=== PATIENT | female | born 1930 | race Caucasian/White ===

== ENCOUNTER → 2016-12-16 | Outpatient (CLI) | payer MEDICARE, BC ==
[~2016-12-16] MED LIST: ASCO500C PO; CALC500C16 CHEW; CALC600T12 PO; CLOP75 PO; ENAL20TA81 PO; ENAL5TAB98 PO; FISH1000 PO; FISH120014 PO; HYDR200T3 PO; MULT1TAB84 PO; PLAV75TA29 PO; RANI150T PO; SULF500T3 PO; SULF500T35 PO; TAB-TAB PO; TOPR25TA2 PO; TOPR50TA PO; VITA400C28 PO; VITA500C PO; ZOCO40TA PO
[2016-12-16 09:21] LABS: AUTOMATED NEUTROPHIL # 4.3 TH/MM3 (1.8-7.7); BASOPHIL % 0.6 % (0.0-2.0); EOSINOPHIL # 0.1 TH/MM3 (0-0.4); HEMATOCRIT 31.9 % (35.0-46.0); HEMO FLAGS DIFF FINAL; LYMPH % 17.9 % (9.0-44.0); LYMPHOCYTE # 1.1 TH/MM3 (1.0-4.8); MEAN CELL VOLUME 93.1 FL (80.0-100.0); MEAN CORPUSCULAR HEMOGLOBIN 30.4 PG (27.0-34.0); MEAN CORPUSCULAR HGB CONC 32.7 % (32.0-36.0); MONO % 7.4 % (0.0-8.0); NEUT % 72.1 % (16.0-70.0); PLATELET COUNT 240 TH/MM3 (150-450); RED BLOOD COUNT 3.42 MIL/MM3 (4.00-5.30); RED CELL DISTRIBUTION WIDTH 15.1 % (11.6-17.2)
[2016-12-16 09:46] LABS: ALKALINE PHOSPHATASE 73 U/L (45-117); ALT (GPT) 23 U/L (10-53); ANION GAP 8 MEQ/L (5-15); AST (GOT) 25 U/L (15-37); BICARBONATE 29.5 MEQ/L (21.0-32.0); BLOOD UREA NITROGEN 34 MG/DL (7-18); CHLORIDE 104 MEQ/L (98-107); GLOMERULAR FILTRATION RATE 71 ML/MIN (>89); GLUCOSE,FASTING 108 MG/DL (74-99); POTASSIUM 3.6 MEQ/L (3.5-5.1); SODIUM (NA) 141 MEQ/L (136-145); TOTAL BILIRUBIN ADULT 0.3 MG/DL (0.2-1.0)
[2016-12-16 09:48] LABS: WESTERGREN SEDIMENTATION RATE 56 mm/hr (0-30)
== END ==
LOC: PLAB 07:38
PROVIDERS: ATTEND Allergy & Immunology
DX: M05.79 Rheumatoid arthritis with rheumatoid factor of multiple sites without organ or systems involvement (principal); Z79.899 Other long term (current) drug therapy
CPT/HCPCS: 36415; 80053; 85025; 85652; 86140

== ENCOUNTER → 2017-02-04 | Outpatient (CLI) | payer MEDICARE, BC ==
[~2017-02-04] MED LIST changes: -CALC600T12 PO; -CLOP75 PO; -ENAL5TAB98 PO; -FISH1000 PO; -SULF500T35 PO; -TAB-TAB PO; -TOPR25TA2 PO; -VITA500C PO
[2017-02-04 09:22] LABS: BASOPHIL # 0.1 TH/MM3 (0-0.2); BASOPHIL % 1.1 % (0.0-2.0); EOSINOPHIL # 0.2 TH/MM3 (0-0.4); EOSINOPHIL % 2.7 % (0.0-4.0); HEMATOCRIT 31.9 % (35.0-46.0); HEMO FLAGS DIFF FINAL; LYMPH % 15.8 % (9.0-44.0); LYMPHOCYTE # 1.1 TH/MM3 (1.0-4.8); MEAN CELL VOLUME 91.1 FL (80.0-100.0); MEAN CORPUSCULAR HEMOGLOBIN 30.2 PG (27.0-34.0); MEAN CORPUSCULAR HGB CONC 33.1 % (32.0-36.0); MONO % 9.1 % (0.0-8.0); NEUT % 71.3 % (16.0-70.0); PLATELET COUNT 265 TH/MM3 (150-450); RED BLOOD COUNT 3.51 MIL/MM3 (4.00-5.30); RED CELL DISTRIBUTION WIDTH 16.4 % (11.6-17.2); WHITE BLOOD COUNT 7.1 TH/MM3 (4.0-11.0)
[2017-02-04 09:46] LABS: ALKALINE PHOSPHATASE 87 U/L (45-117); ALT (GPT) 22 U/L (10-53); ANION GAP 7 MEQ/L (5-15); AST (GOT) 27 U/L (15-37); BICARBONATE 28.6 MEQ/L (21.0-32.0); BLOOD UREA NITROGEN 24 MG/DL (7-18); CHLORIDE 104 MEQ/L (98-107); GLOMERULAR FILTRATION RATE 74 ML/MIN (>89); GLUCOSE,FASTING 110 MG/DL (74-99); SODIUM (NA) 140 MEQ/L (136-145); TOTAL BILIRUBIN ADULT 0.4 MG/DL (0.2-1.0)
[2017-02-04 09:50] LABS: WESTERGREN SEDIMENTATION RATE 37 mm/hr (0-30)
== END ==
LOC: PLAB 07:26
PROVIDERS: ATTEND Family Medicine
DX: E03.9 Hypothyroidism, unspecified (principal); M05.79 Rheumatoid arthritis with rheumatoid factor of multiple sites without organ or systems involvement; Z79.899 Other long term (current) drug therapy
CPT/HCPCS: 36415; 80053; 84443; 85025; 85652; 86140

== ENCOUNTER → 2017-02-09 | Outpatient (CLI) | payer MEDICARE, BC ==
--- NOTE | 2017-02-03 10:22 | MH ---
cc: LUCY REED DATE OF ADMISSION: 02/09/2017 ADMISSION DIAGNOSIS Cloudy posterior capsule left eye. HISTORY OF PRESENT ILLNESS This 86-year-old white female is coming through [facility] for the purpose of a YAG laser posterior capsulotomy of the left eye. She is status post cataract surgery with intraocular lens implants in the past and was found to have a cloudy posterior capsule in the left eye, has elected to have a YAG laser posterior capsulotomy at this time to try and increase the acuity. She also has corneal problems in her right eye and is being referred for a corneal evaluation. PAST MEDICAL HISTORY 1. History of hypertension. 2. Rheumatoid arthritis. 3. Anemia. 4. Heart blockages. 5. Stroke in 2004. PAST SURGICAL HISTORY Bilateral cataract surgery. YAG laser posterior capsulotomy on the right eye. Hernia surgery twice. Appendectomy. Bilateral total knee replacements. Foot surgery. Some stents in her heart. DAILY MEDICATIONS 1. Sulfasalazine. 2. Ranitidine. 3. Metoprolol. 4. Hydroxychloroquine. 5. Enalapril. 6. Simvastatin. 7. Centrum vitamins. 8. Fish oil. 9. Iron. 10. Baby aspirin. 11. Calcium. 12. Vitamin D. ALLERGIES SHE IS ALLERGIC TO PENICILLIN COUMADIN. FAMILY HISTORY, REVIEW OF SYSTEMS, SOCIAL HISTORY Noncontributory. PHYSICAL EXAMINATION On ocular exam the patient's best corrected visual acuity is 20/400 in the right eye and 20/40 -2 in the left. Visual johnson are full to confrontation testing. Extraocular muscle exam reveals full versions with orthophoria at distance and near. Pupils are 2.5 mm, equal, round, reactive to light without afferent defect. Anterior segment examination reveals some hazy corneal opacities in the right eye and a cloudy posterior capsule in the left. Intraocular pressure is 12 in the right eye and 15 in the left by applanation tonometry. Dilated fundus exam revealed sharp disk with cup-to-disk ratio of 0.3 bilaterally. The macula is clear and a posterior vitreous detachment is present bilaterally. IMPRESSION 1. Cloudy posterior capsule left eye. 2. Corneal opacities right eye. 3. Pseudophakia both eyes, status post YAG laser posterior capsulotomy, right eye. 4. High-risk medication use - Plaquenil. PLAN YAG laser posterior capsulotomy of the left eye. The patient will is being referred to a corneal specialist for evaluation of the right eye. MD JACLYN Bartlett/JLAEN /8:16 AM /9:13 AM
[~2017-02-09] MED LIST changes: +BALANCED SALT SOLN OPHT IRRIG 15 ML BTL ONE; +FLUOROMETHOLONE 0.25% OPHT SUSP 5 ML BTL ONE; +HYPROMELLOSE 0.3 % OPTH GEL 10 GM (0.34 FL OZ) TUBE ONE; +PHENYLEPHRINE HCL 2.5% OPTH SOLN 2 ML BTL ONE; +PROPARACAINE HCL 0.5% OPHT SOLN 15 ML BTL ONE; +TROPICAMIDE 1% OPHT SOLN 15 ML BTL ONE
--- NOTE | 2017-02-10 10:52 | MP ---
cc: LUCY HIGGINS M.D. DATE OF SURGERY 02/09/2017 PREOPERATIVE DIAGNOSIS Cloudy posterior capsule left eye. POSTOPERATIVE DIAGNOSIS Cloudy posterior capsule left eye. OPERATION YAG laser posterior capsulotomy, left eye. SURGEON Lucy Higgins MD ANESTHESIA Topical COMPLICATIONS None INDICATIONS See history and physical previously dictated. PROCEDURE The patient arrived at [facility]. Blood pressure was 136/62, pulse 60, respirations 16. A drop of Alphagan P and Mydriacyl were instilled in the left eye. The patient was seated at the YAG laser. A drop of Alcaine was instilled in the left eye and a YAG laser posterior capsulotomy lens was placed on the anterior surface of the left cornea. YAG laser posterior capsulotomy was carried out utilizing 30 exposures of 1.5. millijoules. An adequate opening was seen following the procedure. A drop of Alphagan P was instilled topically. The patient was given a prescription for a topical steroid to be used four times per day and has an appointment for follow up on the first postoperative day in my office. The patient left the [facility] in satisfactory condition. MD JACLYN Bartlett/ANGELICA /12:37 PM /10:48 AM
--- NOTE | 2017-02-10 10:53 | MP ---
cc: LUCY HIGGINS DATE OF SURGERY: 02/09/2017 PREOPERATIVE DIAGNOSIS: Cloudy posterior capsule left eye. POSTOPERATIVE DIAGNOSIS: Cloudy posterior capsule left eye. OPERATION: YAG laser posterior capsulotomy, left eye. SURGEON: Lucy Higgins MD ANESTHESIA: Topical. COMPLICATIONS: None. INDICATIONS: See history and physical previously dictated. PROCEDURE: The patient arrived at [facility]. Blood pressure was 136/62, pulse 60, respirations 16. The patient was seated at the YAG laser. A drop of Alcaine was instilled in the left eye and a YAG laser posterior capsulotomy lens was placed on the anterior surface of the left cornea. YAG laser posterior capsulotomy was carried out utilizing 30 exposures of 1.5 millijoules. An adequate opening was seen following the procedure. The patient was given a prescription for a topical steroid to be used four times per day and has an appointment for follow up on the first postoperative day in my office. The patient left the [facility] in satisfactory condition. MD JACLYN Bartlett/ni /12:34 PM /10:48 AM MTDShannan
== END ==
LOC: PHSDC 10:36
PROVIDERS: ATTEND Ophthalmology
DX: H26.492 Other secondary cataract, left eye (principal)

== ENCOUNTER 2017-07-22 11:15 | Emergency (ER) | payer MEDICARE, BC ==
[~2017-07-22 11:15] MED LIST changes: -BALANCED SALT SOLN OPHT IRRIG 15 ML BTL ONE; -FLUOROMETHOLONE 0.25% OPHT SUSP 5 ML BTL ONE; -HYPROMELLOSE 0.3 % OPTH GEL 10 GM (0.34 FL OZ) TUBE ONE; -PHENYLEPHRINE HCL 2.5% OPTH SOLN 2 ML BTL ONE; -PROPARACAINE HCL 0.5% OPHT SOLN 15 ML BTL ONE; -TROPICAMIDE 1% OPHT SOLN 15 ML BTL ONE
[2017-07-22] MEDS ORDERED: SODIUM CHLOR 0.9% 1000 ML INJ 1,000 ML IV ONE (11:28)
[2017-07-22] MEDS ORDERED: SODIUM CHLORIDE 0.9% FLUSH 10 ML FLUSH IVF PRN (11:30)
[2017-07-22 11:31] VITALS: BP 143/66; PULSE 102; RESP 16; TEMP 98.2; O2SAT 94
[2017-07-22] MEDS ORDERED: HYDR12.57 PO (11:38)
[2017-07-22] MEDS ORDERED: ASPI81CH CHEW (11:38)
[2017-07-22] MEDS ORDERED: FERR140T PO (11:38)
[2017-07-22 11:44] VITALS: O2SAT 94; O2SAT 99
--- NOTE | 2017-07-22 11:45 | PD ---
HPI . Scalp injury Chief Complaint: Syncope/Near-Syncope Time Seen by Provider: 11:28 Travel History International Travel<30 days: No Contact w/Intl Traveler<30days: No Traveled to known affect area: No History of Present Illness HPI This patient presents to us by EVAC after falling and striking her head. The patient was reportedly walking a great distance in the heat. She denies feeling weak and dizzy but EMS reports that she probably did have a syncopal episode and then struck her head. They report hypotension on their initial evaluation. They treated her with a fluid bolus. The patient has no complaints on arrival to the emergency department. Specifically, she denies feeling weak and dizzy. She denies headache or blurred vision. She denies chest pain or shortness of breath. She denies nausea or vomiting. She does not believe that she has been running a fever. PFSH Past Medical History Arthritis: Yes Autoimmune Disease: No Blood Disorders: No Heart Rhythm Problems: No Cancer: Yes (hx of skin cancer) Cardiac Catheterization: Yes (? STENT PLACEMENT - PT UNSURE) High Cholesterol: Yes Congestive Heart Failure: No Cerebrovascular Accident: Yes (TIA) Diabetes: No Endocrine: No Genitourinary: No Hepatitis: No Hiatal Hernia: No Hypertension: Yes Immune Disorder: Yes Musculoskeletal: No Neurologic: Yes Psychiatric: No Reproductive: No Respiratory: No Myocardial Infarction: No Sickle Cell Disease: No Thyroid Disease: No PNEUMOCCOCAL Vaccine (Year): 2 Past Surgical History Abdominal Surgery: Yes (appendectomy hernia repair) Appendectomy: Yes Eye Surgery: Yes (RIGHT CAT. SX) Joint Replacement: Yes (BILATERAL KNEE REPLACEMENTS) Pacemaker: No Tonsillectomy: Yes Other Surgery: Yes Social History Alcohol Use: No Tobacco Use: No Substance Use: No Allergies-Medications (Allergen,Severity, Reaction): Coded Allergies: penicillin G (Unverified Allergy, Severe, RASH, 07/22/17) warfarin (Unverified Allergy, Severe, Rash, 07/22/17) Reported Meds & Prescriptions Reported Meds & Active Scripts Active Macrobid (Nitrofurantoin Monoh/Nitrofur Macro) 100 Mg Cap 100 Mg PO BID 7 Days Reported Aspirin 81 Mg Chew 81 Mg CHEW DAILY Ferrous Sulfate ER (Ferrous Sulfate) 140 Mg (45 Mg Iron) Tab 140 Mg PO DAILY Hydrochlorothiazide 12.5 Mg Cap 12.5 Mg PO DAILY Sulfasalazine 500 Mg Tab 1,000 Mg PO BID Zocor (Simvastatin) 40 Mg Tab 40 Mg PO HS Ranitidine (Ranitidine HCl) 150 Mg Tab 150 Mg PO BID Toprol XL (Metoprolol Succinate) 50 Mg Tab 50 Mg PO BID Hydroxychloroquine (Hydroxychloroquine Sulfate) 200 Mg Tab 200 Mg PO BID Takw with food Vasotec (Enalapril Maleate) 20 Mg Tab 20 Mg PO BID Review of Systems Except as stated in HPI: all other systems reviewed are Neg General / Constitutional: No: Fever, Chills Eyes: No: Diploplia, Blurred Vision HENT: No: Headaches, Lightheadedness Cardiovascular: No: Chest Pain or Discomfort Respiratory: No: Shortness of Breath Gastrointestinal: No: Nausea, Vomiting, Diarrhea Neurologic: No: Weakness, Dizziness, Syncope Physical Exam Narrative GENERAL: This is a thin, frail, elderly woman who does not appear to be in any acute distress. SKIN: Warm and dry. HEAD: Left posterior scalp contusion. EYES: Pupils equal and round. Extraocular movements intact. ENT: No nasal bleeding or discharge. Mucous membranes pink and moist. NECK: Trachea midline. Nontender. Full range of motion. CARDIOVASCULAR: Regular rate and rhythm. Heart sounds normal. RESPIRATORY: No accessory muscle use. Lungs clear with full air movement throughout. GASTROINTESTINAL: Abdomen soft, non-tender, nondistended. MUSCULOSKELETAL: She has deformities consistent with rheumatoid arthritis. NEUROLOGICAL: Awake and alert. No obvious cranial nerve deficits. Motor grossly within normal limits. Normal speech. PSYCHIATRIC: Appropriate mood and affect; insight and judgment normal. Data Data Last Documented VS Vital Signs Date Time Temp Pulse Resp B/P (MAP) Pulse Ox O2 Delivery O2 Flow Rate FiO2 07/22/17 11:44 94 Room Air 07/22/17 11:31 98.2 102 16 143/66 (91) Orders Orders Electrocardiogram (07/22/17 11:28) Basic Metabolic Panel (Bmp) (07/22/17 11:28) Complete Blood Count With Diff (07/22/17 11:28) Urinalysis - C+S If Indicated (07/22/17 11:28) Ct Brain W/O Iv Contrast(Rout) (07/22/17 11:28) Ct Cerv Spine W/O Contrast (07/22/17 11:28) Ecg Monitoring (07/22/17 11:28) Iv Access Insert/Monitor (07/22/17 11:28) Oximetry (07/22/17 11:28) Sodium Chloride 0.9% Flush (Ns Flush) (07/22/17 11:30) Sodium Chlor 0.9% 1000 Ml Inj (Ns 1000 M (07/22/17 11:28) Sodium Chlor 0.9% 1000 Ml Inj (Ns 1000 M (07/22/17 13:15) Sodium Chlor 0.9% 1000 Ml Inj (Ns 1000 M (07/22/17 13:15) Urine Culture (07/22/17 13:23) Ceftriaxone Inj (Rocephin Inj) (07/22/17 14:00) Labs Laboratory Tests Test 07/22/17 12:15 07/22/17 13:23 White Blood Count 5.9 TH/MM3 Red Blood Count 3.25 MIL/MM3 Hemoglobin 9.6 GM/DL Hematocrit 30.4 % Mean Corpuscular Volume 93.6 FL Mean Corpuscular Hemoglobin 29.7 PG Mean Corpuscular Hemoglobin Concent 31.7 % Red Cell Distribution Width 14.4 % Platelet Count 227 TH/MM3 Mean Platelet Volume 6.9 FL Neutrophils (%) (Auto) 81.2 % Lymphocytes (%) (Auto) 10.0 % Monocytes (%) (Auto) 7.1 % Eosinophils (%) (Auto) 0.9 % Basophils (%) (Auto) 0.8 % Neutrophils # (Auto) 4.8 TH/MM3 Lymphocytes # (Auto) 0.6 TH/MM3 Monocytes # (Auto) 0.4 TH/MM3 Eosinophils # (Auto) 0.1 TH/MM3 Basophils # (Auto) 0.0 TH/MM3 CBC Comment DIFF FINAL Differential Comment Blood Urea Nitrogen 30 MG/DL Creatinine 0.68 MG/DL Random Glucose 98 MG/DL Calcium Level 9.3 MG/DL Sodium Level 143 MEQ/L Potassium Level 3.5 MEQ/L Chloride Level 109 MEQ/L Carbon Dioxide Level 27.7 MEQ/L Anion Gap 6 MEQ/L Estimat Glomerular Filtration Rate 82 ML/MIN Urine Color YELLOW Urine Turbidity SLIGHT Urine pH 6.5 Urine Specific [place] 1.016 Urine Protein TRACE mg/dL Urine Glucose (UA) NEG mg/dL Urine Ketones NEG mg/dL Urine Occult Blood NEG Urine Nitrite POS Urine Bilirubin NEG Urine Leukocyte Esterase NEG Urine RBC 0-3 /hpf Urine WBC 0-2 /hpf Urine Squamous Epithelial Cells 0-5 /hpf Urine Bacteria MANY /hpf Microscopic Urinalysis Comment CULTURE INDICATED MDM Medical Decision Making Medical Screen Exam Complete: Yes Emergency Medical Condition: Yes Medical Record Reviewed: Yes (medical history is significant for rheumatoid arthritis, coronary artery disease, hypertension, hyperlipidemia and previous syncope.) Interpretation(s) EKG shows a sinus rhythm with no acute ischemic change. Her rate is 99. Differential Diagnosis My differential diagnosis of syncope includes but is not limited to cardiac arrhythmia, hypovolemia, anemia, neurological catastrophe, vasovagal response My differential diagnosis of head trauma includes but is not limited to scalp contusion, concussion, intracerebral hemorrhage. Narrative Course This patient presents following a probable syncopal event, although she denies it. It is most likely secondary to low blood pressure after walking for an extended distance in the heat. She has also injured her head fall. CT of her head is pending. She has rheumatoid arthritis. Because of the blow to the head and her history of RA, I have ordered a CT of her neck as well. Last Impressions Head CT 07/22/17 1128 Signed Impressions: Service Date/Time: Saturday, July 22, 2017 11:46 - CONCLUSION: Dolichoectasia and vascular artery, negative for acute traumatic process. Tim Yanes MD FACR Cervical Spine CT 07/22/17 1128 Signed Impressions: Service Date/Time: Saturday, July 22, 2017 11:46 - CONCLUSION: 1. Osteopenia with extensive degenerative changes without fracture. 2. Controlled flexion extension films may be of benefit to evaluate C5-C6. 3. Extensive carotid body calcification of the right probably hemodynamically significant. Tim Yanes MD FACR CBC & BMP Diagram 07/22/17 12:15 Calcium Level 9.3 UA>>pos nitrite and many bact. She'll be given a dose of IV Rocephin here and will then be discharged on oral Macrobid. Diagnosis Primary Impression: Syncope Qualified Codes: T67.1XXA - Heat syncope, initial encounter Additional Impressions: Dehydration Scalp contusion Qualified Codes: S00.03XA - Contusion of scalp, initial encounter Urinary tract infection Qualified Codes: N30.00 - Acute cystitis without hematuria Patient Instructions: Dehydration (DC), General Instructions, Scalp Contusion in Adults (ED), Urinary Tract Infection in Women (DC) Med/Other Pt SpecificInfo: Prescription(s) given Scripts Nitrofurantoin Monohydrate Macrocrystals (Macrobid) 100 Mg Cap 100 MG PO BID for Infection for 7 Days, CAP 0 Refills Prov: Nataliia Alanis MD 07/22/17 Disposition: 01 DISCHARGE HOME Condition: Stable Nataliia Alanis MD Jul 22, 2017 11:45
--- NOTE | 2017-07-22 12:07 | RADRPT ---
EXAM DATE/TIME: 07/22/2017 11:46 [facility] COMPARISON: No previous studies available for comparison. INDICATIONS : Trauma. Fell and hit head. Syncopal episode. RADIATION DOSE: 60.89 CTDIvol (mGy) MEDICAL HISTORY : Cerebrovascular disease. Cardiovascular disease Hypertension. SURGICAL HISTORY : Appendectomy. ENCOUNTER: Initial ACUITY: 1 day PAIN SCALE: 4/10 LOCATION: cranial TECHNIQUE: Multiple contiguous axial images were obtained of the head. Using automated exposure control and adj ustment of the mA and/or kV according to patient size, radiation dose was kept as low as reasonably a chievable to obtain optimal diagnostic quality images. DICOM format image data is available electro nically for review and comparison. FINDINGS: CEREBRUM: The ventricles are normal for age. No evidence of midline shift, mass lesion, hemorrhage or acute in farction. No extra-axial fluid collections are seen. POSTERIOR FOSSA: The cerebellum and brainstem are intact. The 4th ventricle is midline. The cerebellopontine angle i s unremarkable. Dolichoectasia of the bibasilar artery is noted. EXTRACRANIAL: The visualized portion of the orbits is intact. SKULL: The calvaria is intact. No evidence of skull fracture. Cephalhematoma left occipital region without fracture. CONCLUSION: Dolichoectasia and vascular artery, negative for acute traumatic process. Tim Yanes MD FACR on July 22, 2017 at 12:05 Board Certified Radiologist. This report was verified electronically.
[2017-07-22 12:34] LABS: AUTOMATED NEUTROPHIL # 4.8 TH/MM3 (1.8-7.7); BASOPHIL % 0.8 % (0.0-2.0); EOSINOPHIL # 0.1 TH/MM3 (0-0.4); EOSINOPHIL % 0.9 % (0.0-4.0); HEMATOCRIT 30.4 % (35.0-46.0); LYMPHOCYTE # 0.6 TH/MM3 (1.0-4.8); MEAN CELL VOLUME 93.6 FL (80.0-100.0); MEAN CORPUSCULAR HEMOGLOBIN 29.7 PG (27.0-34.0); MEAN CORPUSCULAR HGB CONC 31.7 % (32.0-36.0); MONO % 7.1 % (0.0-8.0); NEUT % 81.2 % (16.0-70.0); PLATELET COUNT 227 TH/MM3 (150-450); RED BLOOD COUNT 3.25 MIL/MM3 (4.00-5.30); RED CELL DISTRIBUTION WIDTH 14.4 % (11.6-17.2); WHITE BLOOD COUNT 5.9 TH/MM3 (4.0-11.0)
[2017-07-22 12:35] LABS: POTASSIUM 3.5 MEQ/L (3.5-5.1)
[2017-07-22 12:37] LABS: HEMO FLAGS DIFF FINAL
[2017-07-22 12:38] LABS: BICARBONATE 27.7 MEQ/L (21.0-32.0)
--- NOTE | 2017-07-22 13:02 | RADRPT ---
EXAM DATE/TIME: 07/22/2017 11:46 [facility] COMPARISON: No previous studies available for comparison. INDICATIONS : Trauma. Fall. Syncopal episode. RADIATION DOSE: 25.39 CTDIvol (mGy) MEDICAL HISTORY : Cerebrovascular disease. Cardiovascular disease Hypertension. SURGICAL HISTORY : Appendectomy. ENCOUNTER: Initial ACUITY: 1 day PAIN SCALE: 0/10 LOCATION: neck TECHNIQUE: Volumetric scanning of the cervical spine was performed. Multiplanar reconstructions in the sagittal, coronal and oblique axial planes were performed. Using automated exposure control and adjustment o f the mA and/or kV according to patient size, radiation dose was kept as low as reasonably achievable to obtain optimal diagnostic quality images. DICOM format image data is available electronically f or review and comparison. FINDINGS: VERTEBRAE: Normal vertebral body height. Moderate degenerative changes are evident. ALIGNMENT: No evidence of subluxation. C2-C3: Moderate facet disease is present without fracture or spinal stenosis. C3-C4: Moderate facet disease and minimal uncinate ridging is present without spinal stenosis or fracture. C4-C5: Significant left-sided facet disease is evident with neural foramina encroachment. There is no fract ure. C5-C6: Moderate uncinate ridging is present with mild bilateral neural foramina encroachment. There is no f racture. There is minimal angulation at C5-C6. C6-C7: The bony spinal canal is normal in size. No evidence of disc bulge or herniation. The neural forami na are bilaterally patent. C7-T1: The bony spinal canal is normal in size. No evidence of disc bulge or herniation. The neural forami na are bilaterally patent. Extensive carotid calcifications are present on the right probably hemodynamically significant. CONCLUSION: 1. Osteopenia with extensive degenerative changes without fracture. 2. Controlled flexion extension films may be of benefit to evaluate C5-C6. 3. Extensive carotid body calcification of the right probably hemodynamically significant. Tim Yanes MD FACR on July 22, 2017 at 12:58 Board Certified Radiologist. This report was verified electronically.
[2017-07-22] MEDS ORDERED: SODIUM CHLOR 0.9% 1000 ML INJ 1,000 ML IV SCH ×2 (13:15)
[2017-07-22 13:32] LABS: BLOOD, URINE NEG (NEG); GLUCOSE,URINE NEG (NEG); KETONE, URINE NEG (NEG); NITRITE,URINE POS (NEG); PH, URINE 6.5 (5.0-8.5)
[2017-07-22 13:45] LABS: URINE COLOR YELLOW (YELLW/STRAW)
[2017-07-22 13:46] LABS: BACTERIA, URINE MANY /hpf; COMMENT (UR) CULTURE INDICATED; CULTURE IF INDICATED CULTURE INDICATED; RBC, URINE 0-3 /hpf (0-3); SQUAMOUS EPITHELIAL CELL URINE 0-5 /hpf (0-5); WBC, URINE 0-2 /hpf (0-5)
[2017-07-22] MEDS ORDERED: MACR100C2 PO (13:56)
[2017-07-22] MEDS ORDERED: cefTRIAXone INJ 1,000 MG in SODIUM CHLORIDE 0.9% INJ 100 ML IV ONE (14:00)
[2017-07-22 16:23] VITALS: BP 155/79
--- NOTE | 2017-07-23 17:50 | EKG ---
Date Performed: 07/22/2017 Time Performed: 11:41:50 PTAGE: 87 years EKG: Sinus rhythm NORMAL ECG Compared to prior tracing no significant change PREVIOUS TRACING : 01/25/2012 09.12 DOCTOR: Priyank Lara Interpretating Date/Time 07/23/2017 17:49:00
== END 2017-07-22 16:29 | disposition home or self-care (01) ==
LOC: PHED 11:15
DX: T67.1XXA Heat syncope, initial encounter (principal); E86.0 Dehydration; S00.03XA Contusion of scalp, initial encounter; N30.00 Acute cystitis without hematuria; I10 Essential (primary) hypertension; I25.10 Atherosclerotic heart disease of native coronary artery without angina pectoris; Z86.73 Personal history of transient ischemic attack (TIA), and cerebral infarction without residual deficits; Z88.0 Allergy status to penicillin; E78.00 Pure hypercholesterolemia, unspecified; M19.90 Unspecified osteoarthritis, unspecified site; A49.8 Other bacterial infections of unspecified site; W19.XXXA Unspecified fall, initial encounter
CPT/HCPCS: 70450; 72125; 80048; 81001; 85025; 87077; 87086; 87186; 93005; 96361; 96365; 99285; J0696; J7030

== ENCOUNTER → 2017-07-28 | Outpatient (CLI) | payer MEDICARE, BC ==
[~2017-07-28] MED LIST changes: -ASCO500C PO; +ASPI81CH CHEW; -CALC500C16 CHEW; +FERR140T PO; -FISH120014 PO; +HYDR12.57 PO; +MACR100C2 PO; -MULT1TAB84 PO; -PLAV75TA29 PO; -VITA400C28 PO
== END ==
LOC: PLAB 07:15
DX: M81.0 Age-related osteoporosis without current pathological fracture (principal)
CPT/HCPCS: 36415; 82310

== ENCOUNTER 2017-09-19 19:24 | Inpatient (IN) | payer MEDICARE, BC ==
[~2017-09-19] VITALS: Ht 152.4 cm; Wt 83.9 kg
[2017-09-19 19:36] VITALS: BP 162/79; PULSE 90; RESP 22; TEMP 98.3; O2SAT 98
[2017-09-19] MEDS ORDERED: SODIUM CHLOR 0.9% 1000 ML INJ 1,000 ML IV SCH ×2 (19:39→23:27)
[2017-09-19] MEDS ORDERED: SODIUM CHLORIDE 0.9% FLUSH 5 ML FLUSH IV FLUSH PRN (19:45)
[2017-09-19 20:03] LABS: AUTOMATED NEUTROPHIL # 6.1 TH/MM3 (1.8-7.7); BASOPHIL % 0.4 % (0.0-2.0); EOSINOPHIL # 0.1 TH/MM3 (0-0.4); EOSINOPHIL % 1.7 % (0.0-4.0); HEMATOCRIT 38.3 % (35.0-46.0); HEMO FLAGS DIFF FINAL; LYMPH % 15.1 % (9.0-44.0); LYMPHOCYTE # 1.2 TH/MM3 (1.0-4.8); MEAN CORPUSCULAR HEMOGLOBIN 29.7 PG (27.0-34.0); MONO % 6.9 % (0.0-8.0); NEUT % 75.9 % (16.0-70.0); PLATELET COUNT 233 TH/MM3 (150-450); RED BLOOD COUNT 4.26 MIL/MM3 (4.00-5.30); RED CELL DISTRIBUTION WIDTH 15.3 % (11.6-17.2); WHITE BLOOD COUNT 8.1 TH/MM3 (4.0-11.0)
[2017-09-19 20:26] LABS: ANION GAP 7 MEQ/L (5-15); AST (GOT) 29 U/L (15-37); BICARBONATE 28.9 MEQ/L (21.0-32.0); BLOOD UREA NITROGEN 44 MG/DL (7-18); CHLORIDE 108 MEQ/L (98-107); GLOMERULAR FILTRATION RATE 78 ML/MIN (>89); POTASSIUM 3.2 MEQ/L (3.5-5.1); SODIUM (NA) 144 MEQ/L (136-145)
[2017-09-19 20:27] LABS: ALT (GPT) 25 U/L (10-53)
--- NOTE | 2017-09-19 20:27 | RADRPT ---
EXAM DATE/TIME: 09/19/2017 19:44 [facility] COMPARISON: No previous studies available for comparison. INDICATIONS : Syncopal episode and shortness of breath. MEDICAL HISTORY : Hypertension. SURGICAL HISTORY : Unobtainable. ENCOUNTER: Initial ACUITY: 1 day PAIN SCORE: Non-responsive. LOCATION: chest FINDINGS: The patient is moderately rotated towards the right. Marked tortuosity of the thoracic aorta. The h eart is normal size. There is a linear interface in the lateral one third of the right chest which i s of uncertain significance. Some lung markings are seen peripheral to this area. Cannot differenti ate between a skin fold a pneumothorax. Left lung is clear. Both hemidiaphragms are well delineated . High riding shoulders bilaterally with associated degenerative changes. CONCLUSION: Linear interface in the lateral right lung extends from apex to base. Differential considerations wo uld include a skin fold and pneumothorax. Recommend additional imaging with an upright expiratory vi ew of the chest. Bimal Miles MD on September 19, 2017 at 20:24 Board Certified Radiologist. This report was verified electronically.
[2017-09-19 20:37] LABS: ALKALINE PHOSPHATASE 101 U/L (45-117); TOTAL BILIRUBIN ADULT 0.6 MG/DL (0.2-1.0)
--- NOTE | 2017-09-19 21:03 | RADRPT ---
EXAM DATE/TIME: 09/19/2017 20:49 [facility] COMPARISON: CHEST SINGLE AP, September 19, 2017, 19:44. INDICATIONS : Evaluate for pneumothorax. MEDICAL HISTORY : Hypertension. SURGICAL HISTORY : Unobtainable ENCOUNTER: Subsequent ACUITY: 1 day PAIN SCORE: Non-responsive. LOCATION: Bilateral chest FINDINGS: A portable upright expiratory view of the chest was performed. The patient is rotated [facility] the [facility] and the patient's chin does obscure the apex.. No pleural reflection seen on the right side. To rtuous aorta. No definite infiltrates seen in either lung. CONCLUSION: No pneumothorax seen on the right side. Bimal Miles MD on September 19, 2017 at 21:00 Board Certified Radiologist. This report was verified electronically.
--- NOTE | 2017-09-19 21:05 | RADRPT ---
EXAM DATE/TIME: 09/19/2017 20:00 [facility] COMPARISON: CT BRAIN W/O CONTRAST, July 22, 2017, 11:46. INDICATIONS : Altered mental status. RADIATION DOSE: 56.35 CTDIvol (mGy) MEDICAL HISTORY : Cardiovascular disease. Hypertension. SURGICAL HISTORY : Cardiac catherization. ENCOUNTER: Initial ACUITY: 1 day PAIN SCALE: 0/10 LOCATION: Bilateral cranial TECHNIQUE: Multiple contiguous axial images were obtained of the head. Using automated exposure control and adj ustment of the mA and/or kV according to patient size, radiation dose was kept as low as reasonably a chievable to obtain optimal diagnostic quality images. DICOM format image data is available electro nically for review and comparison. FINDINGS: The patient's head is canted in the gantry which creates some asymmetries between left and right side . CEREBRUM: The ventricles, sulci, and basal cisterns are prominent, characteristic of moderately severe central and cortical atrophy. The severity of the atrophy is similar to prior exam 07/22/17.. No evidence of midline shift, mass lesion, hemorrhage or acute infarction. No extra-axial fluid collections are se en. POSTERIOR FOSSA: The cerebellum and brainstem are intact. The 4th ventricle is midline. The cerebellopontine angle i s unremarkable. EXTRACRANIAL: The visualized portion of the orbits is intact. SKULL: The calvaria is intact. No evidence of skull fracture. CONCLUSION: 1. No acute findings in the brain. 2. Moderately severe central and cortical atrophy, stable. Bimal Miles MD on September 19, 2017 at 21:02 Board Certified Radiologist. This report was verified electronically.
--- NOTE | 2017-09-19 21:39 | PD ---
HPI Chief Complaint: Altered Mental Status Time Seen by Provider: 19:36 Travel History International Travel<30 days: No Contact w/Intl Traveler<30days: No Traveled to known affect area: No History of Present Illness HPI 77 year-old woman presents to the emergency department from home brought in by EMS. They report that she has not been well the past week or so. She lives alone a neighbor comes and checks on her regularly. This week she's not been able to really care for herself, she's been more confused, she's had frequent falls. 4 yesterday and several today. Medical history as stated is hypertension and TIA. Patient unable to provide any additional history at this time. History Past Medical History Narrative Medical From records: Hypertension Hyperlipidemia GERD TIA PNEUMOCCOCAL Vaccine (Year): 2 Social History Alcohol Use: No Tobacco Use: No Allergies-Medications (Allergen,Severity, Reaction): Coded Allergies: penicillin G (Unverified Allergy, Severe, RASH, 07/22/17) warfarin (Unverified Allergy, Severe, Rash, 07/22/17) Reported Meds & Prescriptions Reported Meds & Active Scripts Active Macrobid (Nitrofurantoin Monoh/Nitrofur Macro) 100 Mg Cap 100 Mg PO BID 7 Days Reported Aspirin 81 Mg Chew 81 Mg CHEW DAILY Ferrous Sulfate ER (Ferrous Sulfate) 140 Mg (45 Mg Iron) Tab 140 Mg PO DAILY Hydrochlorothiazide 12.5 Mg Cap 12.5 Mg PO DAILY Sulfasalazine 500 Mg Tab 1,000 Mg PO BID Zocor (Simvastatin) 40 Mg Tab 40 Mg PO HS Ranitidine (Ranitidine HCl) 150 Mg Tab 150 Mg PO BID Toprol XL (Metoprolol Succinate) 50 Mg Tab 50 Mg PO BID Hydroxychloroquine (Hydroxychloroquine Sulfate) 200 Mg Tab 200 Mg PO BID Takw with food Vasotec (Enalapril Maleate) 20 Mg Tab 20 Mg PO BID Review of Systems ROS Limitations: Altered Mental Status, Poor Historian Physical Exam Narrative GENERAL: Elderly 87 year-old woman, no acute distress. SKIN: Focused skin assessment warm/dry. Couple scattered bruises especially in the lower extremities. HEAD: Atraumatic. Normocephalic. EYES: Pupils equal and round. No scleral icterus. No injection or drainage. ENT: No nasal bleeding or discharge. Mucous membranes pink and moist. NECK: Trachea midline. No JVD. CARDIOVASCULAR: Regular rate and rhythm. No murmur appreciated. RESPIRATORY: No accessory muscle use. Clear to auscultation. Breath sounds equal bilaterally. GASTROINTESTINAL: Abdomen soft, non-tender, nondistended. Hepatic and splenic margins not palpable. MUSCULOSKELETAL: No obvious deformities. No edema. NEUROLOGICAL: Awake and alert. Generalized confusion. Oriented to self only. No obvious cranial nerve deficits. Motor grossly within normal limits. Normal speech. Data Data Last Documented VS Vital Signs Date Time Temp Pulse Resp B/P (MAP) Pulse Ox O2 Delivery O2 Flow Rate FiO2 09/19/17 22:00 88 20 158/79 (105) 97 Room Air 09/19/17 19:36 98.3 Orders Orders Electrocardiogram (09/19/17 19:39) Complete Blood Count With Diff (09/19/17 19:39) Comprehensive Metabolic Panel (09/19/17 19:39) Troponin I (09/19/17 19:39) Thyroid Stimulating Hormone (09/19/17 19:39) Urinalysis - C+S If Indicated (09/19/17 19:39) Chest, Single Ap (09/19/17 19:39) Ct Brain W/O Iv Contrast(Rout) (09/19/17 19:39) Blood Glucose (09/19/17 19:39) Ecg Monitoring (09/19/17 19:39) Iv Access Insert/Monitor (09/19/17 19:39) Cath For Specimen (09/19/17 19:39) Oximetry (09/19/17 19:39) Sodium Chloride 0.9% Flush (Ns Flush) (09/19/17 19:45) Sodium Chlor 0.9% 1000 Ml Inj (Ns 1000 M (09/19/17 19:39) Chest, Expiration Only (09/19/17 ) Admit Order (Ed Use Only) (09/19/17 ) Place In Observation (09/19/17 ) Vital Signs (Adult) Q4H (09/19/17 23:27) Activity Oob With Assistance (09/19/17 23:27) Intake + Output JUAN CARLOS.QSHIFT (09/19/17 23:27) Diet 1800 Ada Cons Carb (09/20/17 Breakfast) Sodium Chlor 0.9% 1000 Ml Inj (Ns 1000 M (09/19/17 23:27) Sodium Chloride 0.9% Flush (Ns Flush) (09/19/17 23:30) Sodium Chloride 0.9% Flush (Ns Flush) (09/20/17 09:00) Ondansetron Inj (Zofran Inj) (09/19/17 23:30) Comprehensive Metabolic Panel (09/20/17 06:00) Complete Blood Count With Diff (09/20/17 06:00) Pt Request For Service (09/19/17 23:27) Case Management Consult (09/19/17 23:27) Heparin Inj (Heparin Inj) (09/19/17 23:30) Naloxone Inj (Narcan Inj) (09/19/17 23:30) Magnesium Hydroxide Liq (Milk Of Magnesi (09/19/17 23:30) Sennosides (Senokot) (09/19/17 23:30) Bisacodyl Supp (Dulcolax Supp) (09/19/17 23:30) Lactulose Liq (Lactulose Liq) (09/19/17 23:30) Magnesium (Mg) (09/19/17 23:29) Vitamin B12 (09/19/17 23:29) Thiamine (Vit B1) (Vitamin B1) (09/19/17 23:30) Labs Laboratory Tests Test 09/19/17 19:45 09/19/17 22:00 White Blood Count 8.1 TH/MM3 Red Blood Count 4.26 MIL/MM3 Hemoglobin 12.6 GM/DL Hematocrit 38.3 % Mean Corpuscular Volume 90.0 FL Mean Corpuscular Hemoglobin 29.7 PG Mean Corpuscular Hemoglobin Concent 33.0 % Red Cell Distribution Width 15.3 % Platelet Count 233 TH/MM3 Mean Platelet Volume 8.4 FL Neutrophils (%) (Auto) 75.9 % Lymphocytes (%) (Auto) 15.1 % Monocytes (%) (Auto) 6.9 % Eosinophils (%) (Auto) 1.7 % Basophils (%) (Auto) 0.4 % Neutrophils # (Auto) 6.1 TH/MM3 Lymphocytes # (Auto) 1.2 TH/MM3 Monocytes # (Auto) 0.6 TH/MM3 Eosinophils # (Auto) 0.1 TH/MM3 Basophils # (Auto) 0.0 TH/MM3 CBC Comment DIFF FINAL Differential Comment Blood Urea Nitrogen 44 MG/DL Creatinine 0.71 MG/DL Random Glucose 134 MG/DL Total Protein 7.0 GM/DL Albumin 3.3 GM/DL Calcium Level 10.5 MG/DL Alkaline Phosphatase 101 U/L Aspartate Amino Transf (AST/SGOT) 29 U/L Alanine Aminotransferase (ALT/SGPT) 25 U/L Total Bilirubin 0.6 MG/DL Sodium Level 144 MEQ/L Potassium Level 3.2 MEQ/L Chloride Level 108 MEQ/L Carbon Dioxide Level 28.9 MEQ/L Anion Gap 7 MEQ/L Estimat Glomerular Filtration Rate 78 ML/MIN Troponin I 0.07 NG/ML Thyroid Stimulating Hormone 3rd Gen 1.800 uIU/ML Urine Color YELLOW Urine Turbidity HAZY Urine pH 6.5 Urine Specific [place] 1.017 Urine Protein 30 mg/dL Urine Glucose (UA) NEG mg/dL Urine Ketones NEG mg/dL Urine Occult Blood TRACE Urine Nitrite NEG Urine Bilirubin NEG Urine Urobilinogen 2.0 MG/DL Urine Leukocyte Esterase NEG Urine RBC 4 /hpf Urine WBC 2 /hpf Urine Calcium Oxalate Crystals RARE /hpf Urine Amorphous Sediment RARE Urine Mucus FEW /lpf Microscopic Urinalysis Comment CATH-CULT NOT IND MDM Medical Decision Making Medical Screen Exam Complete: Yes Emergency Medical Condition: Yes Interpretation(s) My review of EKG: Normal sinus rhythm at a rate of 82 with either some sinus arrhythmia or PACs., normal axis, normal intervals, no definite evidence of acute ischemia. CBC is unremarkable. CMP is remarkable for elevated BUN suggesting dehydration or GI bleed, TSH normal Troponin 0.07 CT head: Negative for acute changes, moderate to severe central cortical atrophy. Chest x-ray: Concern for pneumothorax. Repeat x-ray shows no pneumothorax. Differential Diagnosis Infection, UTI, dehydration, failure to thrive, dementia, brain bleed, other Narrative Course Medical decision making INITIAL cause an 87 year-old woman presents emergency department with worsening confusion weakness increasing falls and inability to care for herself. Currently she appears dehydrated and her BUN is very elevated. She may have an infection as well. His may represent worsening of underlying this Julianne present subacute worsening of underlying dementia. Diagnosis Primary Impression: Altered mental status Additional Impression: Dehydration Admitting Information Admitting Physician Requests: Admit Bernardino Harrison MD Sep 19, 2017 21:39
[2017-09-19 22:00] VITALS: BP 158/79; PULSE 88; RESP 20; O2SAT 97
[2017-09-19 23:08] LABS: BLOOD, URINE TRACE (NEG); CALCIUM OXALATE CRYSTALS,URINE RARE /hpf; GLUCOSE,URINE NEG (NEG); KETONE, URINE NEG (NEG); MUCUS URINE FEW /lpf (OCC); NITRITE,URINE NEG (NEG); PH, URINE 6.5 (5.0-8.5); URINE COLOR YELLOW (YELLW/STRAW)
[2017-09-19 23:10] LABS: COMMENT (UR) CATH-CULT NOT IND; CULTURE IF INDICATED CATH CULTURE NOT IND
[2017-09-19] MEDS ORDERED: ONDANSETRON HCL 4 MG/2 ML VIAL IVP PRN (23:30)
[2017-09-19] MEDS ORDERED: LACTULOSE SYRUP 20 GM/30 ML CUP PO PRN (23:30)
[2017-09-19] MEDS ORDERED: THIAMINE HCL 100 MG TAB PO ONE (23:30)
[2017-09-19] MEDS ORDERED: SODIUM CHLORIDE 0.9% FLUSH 10 ML FLUSH IV FLUSH PRN (23:30)
[2017-09-19] MEDS ORDERED: MAGNESIUM HYDROXIDE SUSP 30 ML CUP PO PRN (23:30)
[2017-09-19] MEDS ORDERED: SENNOSIDES 8.6 MG TAB PO PRN (23:30)
[2017-09-19] MEDS ORDERED: BISACODYL 10 MG SUPP RECTAL PRN (23:30)
[2017-09-19] MEDS ORDERED: NALOXONE HCL 0.4 MG/ML AMP IV PUSH PRN (23:30)
--- NOTE | 2017-09-19 23:45 | HHI.HP ---
HPI [facility] Primary [facility] Physician Anastacia Hall DO Admission Diagnosis AMS, Dehydration Diagnoses: Chief Complaint: AMS Travel History International Travel<30 Days: No Contact w/Intl Traveler <30 Da: No Traveled to Known Affected Are: No History of Present Illness Written by CJ Pantoja acting as scribe for Dr. Taylor] on 09/19/17 at 23:44. 87 y/o female with a history of HLD, HTN, gerd and iron deficiency anemia was brought in by [facility] after a neighbor states she was unable to care for herself. The patient lives alone and the neighbor checks on her regularly and states this week she has been unable to care for herself and has had multiple falls with confusion. Patient is a poor historian and is not oriented upon examination. All she says is she feels bad, unable to elaborate. Review of Systems ROS Limitations: Poor Historian Past Family Social History Past Medical History From records: Hypertension Hyperlipidemia GERD TIA Past Surgical History Unknown surgical history Reported Medications Reported Meds & Active Scripts Active Macrobid (Nitrofurantoin Monoh/Nitrofur Macro) 100 Mg Cap 100 Mg PO BID 7 Days Reported Nitrostat SL (Nitroglycerin) 0.4 Mg Subl 0.4 Mg SL DIRECTED PRN 1 tablet under the tongue as needed for chest pain. Repeat every 5 minutes for a total of 3 DOSES or call 911 if NO relief. Aspirin 81 Mg Chew 81 Mg CHEW DAILY Ferrous Sulfate ER (Ferrous Sulfate) 140 Mg (45 Mg Iron) Tab 140 Mg PO DAILY Hydrochlorothiazide 12.5 Mg Cap 12.5 Mg PO DAILY Sulfasalazine 500 Mg Tab 1,000 Mg PO BID Zocor (Simvastatin) 40 Mg Tab 40 Mg PO HS Ranitidine (Ranitidine HCl) 150 Mg Tab 150 Mg PO BID Toprol XL (Metoprolol Succinate) 50 Mg Tab 50 Mg PO BID Hydroxychloroquine (Hydroxychloroquine Sulfate) 200 Mg Tab 200 Mg PO BID Takw with food Vasotec (Enalapril Maleate) 20 Mg Tab 20 Mg PO BID Allergies: Coded Allergies: penicillin G (Unverified Allergy, Severe, RASH, 8/30/17) warfarin (Unverified Allergy, Severe, Rash, 07/22/17) Active Ordered Medications Current Medications Medications (Trade) Dose Ordered Sig/Ann Route Start Time Stop Time Status Last Admin Sodium Chloride 1,000 ml @ 100 mls/hr Q10H IV 09/19/17 23:27 (NS Flush) 2 ml UNSCH PRN IV FLUSH 09/19/17 23:30 (NS Flush) 2 ml BID IV FLUSH 09/20/17 09:00 (Zofran Inj) 4 mg Q6H PRN IVP 09/19/17 23:30 (Heparin Inj) 5,000 units Q12H SQ 09/19/17 23:00 (Narcan Inj) 0.4 mg UNSCH PRN IV PUSH 09/19/17 23:30 (Milk Of Magnesia Liq) 30 ml Q12H PRN PO 09/19/17 23:30 (Senokot) 17.2 mg Q12H PRN PO 09/19/17 23:30 (Dulcolax Supp) 10 mg DAILY PRN RECTAL 09/19/17 23:30 (Lactulose Liq) 30 ml DAILY PRN PO 09/19/17 23:30 Family History Patient is unable to provide family history Social History Patient is unable to provide social history Physical Exam Vital Signs Vital Signs Date Time Temp Pulse Resp B/P (MAP) Pulse Ox O2 Delivery O2 Flow Rate FiO2 09/19/17 22:00 88 20 158/79 (105) 97 Room Air 09/19/17 19:40 Room Air 09/19/17 19:36 98.3 90 22 162/79 (106) 98 Physical Exam GENERAL: This is a frail unkept patient that is confused. SKIN: No rashes, ecchymoses or lesions. Cool and dry. HEAD: Atraumatic. Normocephalic. EYES: Pupils equal round and reactive. ENT: Nose without bleeding, purulent drainage or septal hematoma. Airway patent. NECK: Trachea midline. No JVD or lymphadenopathy. Supple, nontender, no meningeal signs. CARDIOVASCULAR: Regular rate and rhythm without murmurs, gallops, or rubs. RESPIRATORY: Clear to auscultation. Breath sounds equal bilaterally. No wheezes , rales, or rhonchi. GASTROINTESTINAL: Abdomen soft, non-tender, nondistended. No hepato-splenomegaly , or palpable masses. No guarding. MUSCULOSKELETAL: Extremities without clubbing, cyanosis, or edema. No joint tenderness, effusion, or edema noted. No calf tenderness. NEUROLOGICAL: Awake and confused. Motor and sensory grossly within normal limits. Normal speech. Laboratory Laboratory Tests Test 09/19/17 19:45 09/19/17 22:00 White Blood Count 8.1 Red Blood Count 4.26 Hemoglobin 12.6 Hematocrit 38.3 Mean Corpuscular Volume 90.0 Mean Corpuscular Hemoglobin 29.7 Mean Corpuscular Hemoglobin Concent 33.0 Red Cell Distribution Width 15.3 Platelet Count 233 Mean Platelet Volume 8.4 Neutrophils (%) (Auto) 75.9 Lymphocytes (%) (Auto) 15.1 Monocytes (%) (Auto) 6.9 Eosinophils (%) (Auto) 1.7 Basophils (%) (Auto) 0.4 Neutrophils # (Auto) 6.1 Lymphocytes # (Auto) 1.2 Monocytes # (Auto) 0.6 Eosinophils # (Auto) 0.1 Basophils # (Auto) 0.0 CBC Comment DIFF FINAL Differential Comment Blood Urea Nitrogen 44 Creatinine 0.71 Random Glucose 134 Total Protein 7.0 Albumin 3.3 Calcium Level 10.5 Alkaline Phosphatase 101 Aspartate Amino Transf (AST/SGOT) 29 Alanine Aminotransferase (ALT/SGPT) 25 Total Bilirubin 0.6 Sodium Level 144 Potassium Level 3.2 Chloride Level 108 Carbon Dioxide Level 28.9 Anion Gap 7 Estimat Glomerular Filtration Rate 78 Troponin I 0.07 Thyroid Stimulating Hormone 3rd Gen 1.800 Urine Color YELLOW Urine Turbidity HAZY Urine pH 6.5 Urine Specific [place] 1.017 Urine Protein 30 Urine Glucose (UA) NEG Urine Ketones NEG Urine Occult Blood TRACE Urine Nitrite NEG Urine Bilirubin NEG Urine Urobilinogen 2.0 Urine Leukocyte Esterase NEG Urine RBC 4 Urine WBC 2 Urine Calcium Oxalate Crystals RARE Urine Amorphous Sediment RARE Urine Mucus FEW Microscopic Urinalysis Comment CATH-CULT NOT IND Result Diagram: 09/19/17194409/19/171944 Imaging Last Impressions Head CT 09/19/171938 Signed Impressions: Service Date/Time: Tuesday, September 19, 2017 20:00 - CONCLUSION: 1. No acute findings in the brain. 2. Moderately severe central and cortical atrophy, stable. Bimal Miles MD Chest X-Ray 09/19/171938 Signed Impressions: Service Date/Time: Tuesday, September 19, 2017 19:44 - CONCLUSION: Linear interface in the lateral right lung extends from apex to base. Differential considerations would include a skin fold and pneumothorax. Recommend additional imaging with an upright expiratory view of the chest. MD Sara White VTE Risk Assessment Caprini VTE Risk Assessment: Mod/High Risk (score >= 2) Caprini Risk Assessment Model Point Value = 1 Point Value = 2 Point Value = 3 Point Value = 5 Age 41-60 Minor surgery BMI > 25 kg/m2 Swollen legs Varicose veins or History of unexplained or recurrent spontaneous Oral contraceptives or hormone replacement Sepsis (< 1 month) Serious lung disease, including pneumonia (< 1 month) Abnormal pulmonary function Acute myocardial infarction Congestive heart failure (< 1 month) History of inflammatory bowel disease Medical patient at bed rest Age 61-74 Arthroscopic surgery Major open surgery (> 45 min) Laparoscopic surgery (> 45 min) Malignancy Confined to bed (> 72 hours) Immobilizing plaster cast Central venous access Age >= 75 History of VTE Family history of VTE Factor V Leiden Prothrombin [id number] Lupus anticoagulant Anticardiolipin antibodies Elevated serum homocysteine Heparin-induced thrombocytopenia Other congenital or acquired thrombophilia Stroke (< 1 month) Elective arthroplasty Hip, pelvis, or leg fracture Acute spinal cord injury (< 1 month) Prophylaxis Regimen Total Risk Factor Score Risk Level Prophylaxis Regimen 0-1 Low Early ambulation 2 Moderate Order ONE of the following: *Sequential Compression Device (SCD) *Heparin 5000 units SQ BID 3-4 Higher Order ONE of the following medications: *Heparin 5000 units SQ TID *Enoxaparin/Lovenox 40 mg SQ daily (WT < 150 kg, CrCl > 30 mL/min) *Enoxaparin/Lovenox 30 mg SQ daily (WT < 150 kg, CrCl > 10-29 mL/min) *Enoxaparin/Lovenox 30 mg SQ BID (WT < 150 kg, CrCl > 30 mL/min) AND/OR *Sequential Compression Device (SCD) 5 or more Highest Order ONE of the following medications: *Heparin 5000 units SQ TID (Preferred with Epidurals) *Enoxaparin/Lovenox 40 mg SQ daily (WT < 150 kg, CrCl > 30 mL/min) *Enoxaparin/Lovenox 30 mg SQ daily (WT < 150 kg, CrCl > 10-29 mL/min) *Enoxaparin/Lovenox 30 mg SQ BID (WT < 150 kg, CrCl > 30 mL/min) AND *Sequential Compression Device (SCD) Assessment and Plan Problem List: (1) Altered mental status ICD Code: R41.82 - Altered mental status, unspecified Status: Acute (2) Dehydration ICD Code: E86.0 - Dehydration Status: Acute Assessment and Plan 87 y/o female with a history of HLD, HTN, gerd and iron deficiency anemia was brought in by [facility] after a neighbor states she was unable to care for herself. Acute encephalopathy, unknown etiology, possible dehydration, UA negative Head CT reviewed and shows no acute abnormalities -Neuro checks -drug screen ordered -Case management for possible placement -Pt eval and treat Dehydration, bun 44 -IVF for hydration -Trend labs in AM Hypokalemia, potassium 3.2 -Supplementation ordered, potassium added to IVF, trend labs -Mag 2.3 Elevated troponin, trop .07, no active chest pain -Serial troponin ordered HTN, chronic -Order home medications when meds are verified -PRNS for now DVT prophylaxis: Heparin Discussed Condition With Patient, RN and ED physician Physician Certification 2 Midnight Certification Type: Continued Stay Order for Inpatient Services patient will be placed in observation Estimated LOS (days): 2 patient will be placed in observation Post-Hospital Plan: Home Notes: This note was transcribed by scribe [Tonya Prieto]. I, Dr. Best Hudson personally performed the history, physical exam, and medical decision making; and confirmed the accuracy of the information in the transcribed note. Authenticated by Dr. Best Hudson on 09/20/17 at 03:36. Tonya Prieto Sep 19, 2017 23:45 Best Hudson MD Sep 20, 2017 03:37
[2017-09-20] MEDS ORDERED: NITR0.4S SL (00:08)
[2017-09-20] MEDS ORDERED: NS + KCL 20 MEQ INJ 1,000 ML IV SCH (00:30)
[2017-09-20] MEDS: HEPARIN SODIUM - SQ 10,000 UNITS/ML VIAL SQ SCH ×3 (01:26→22:28)
[2017-09-20 04:18] VITALS: BP 185/83; PULSE 85; RESP 18; TEMP 97.8; O2SAT 96
[2017-09-20] MEDS ORDERED: cloNIDine HCL 0.1 MG TAB PO ONE (04:45)
[2017-09-20 05:33] LABS: AUTOMATED NEUTROPHIL # 4.9 TH/MM3 (1.8-7.7); BASOPHIL % 0.7 % (0.0-2.0); EOSINOPHIL # 0.2 TH/MM3 (0-0.4); EOSINOPHIL % 2.5 % (0.0-4.0); HEMATOCRIT 36.2 % (35.0-46.0); HEMO FLAGS DIFF FINAL; LYMPH % 14.4 % (9.0-44.0); MEAN CELL VOLUME 89.9 FL (80.0-100.0); MEAN CORPUSCULAR HEMOGLOBIN 29.5 PG (27.0-34.0); MEAN CORPUSCULAR HGB CONC 32.8 % (32.0-36.0); MONO % 7.3 % (0.0-8.0); NEUT % 75.1 % (16.0-70.0); PLATELET COUNT 193 TH/MM3 (150-450); RED BLOOD COUNT 4.03 MIL/MM3 (4.00-5.30); RED CELL DISTRIBUTION WIDTH 15.1 % (11.6-17.2); WHITE BLOOD COUNT 6.6 TH/MM3 (4.0-11.0)
[2017-09-20 07:07] LABS: ALKALINE PHOSPHATASE 96 U/L (45-117); ALT (GPT) 21 U/L (10-53); ANION GAP 8 MEQ/L (5-15); AST (GOT) 23 U/L (15-37); BLOOD UREA NITROGEN 27 MG/DL (7-18); CHLORIDE 110 MEQ/L (98-107); GLOMERULAR FILTRATION RATE 131 ML/MIN (>89); POTASSIUM 3.3 MEQ/L (3.5-5.1); SODIUM (NA) 146 MEQ/L (136-145); TOTAL BILIRUBIN ADULT 0.6 MG/DL (0.2-1.0)
[2017-09-20] MEDS ORDERED: POTASSIUM CHLORIDE 20 MEQ CONTROLLED RELEASE TAB PO ONE (07:30)
[2017-09-20 07:52] VITALS: BP 157/67; PULSE 63; RESP 16; TEMP 98; O2SAT 97
[2017-09-20] MEDS: 1/2 NS + KCL 20 MEQ INJ 1,000 ML IV SCH ×2 (08:06→21:51)
[2017-09-20] MEDS: SODIUM CHLORIDE 0.9% FLUSH 10 ML FLUSH IV FLUSH SCH ×2 (08:07→21:00)
--- NOTE | 2017-09-20 09:25 | HHI.PR ---
Subjective Remarks Patient in bed, sleepy, more awake and alert. No n/v/d/c. Denies chest pain or sob. Says she is not eating much because she has decreased appetite. Feels weak. No palpitations. Objective Vitals Vital Signs Date Time Temp Pulse Resp B/P (MAP) Pulse Ox O2 Delivery O2 Flow Rate FiO2 09/20/17 07:52 98.0 63 16 157/67 (97) 97 09/20/17 04:18 97.8 85 18 185/83 (117) 96 09/19/17 22:00 88 20 158/79 (105) 97 Room Air 09/19/17 19:40 Room Air 09/19/17 19:36 98.3 90 22 162/79 (106) 98 I/O 09/19/17 09/19/17 09/19/17 09/20/17 09/20/17 09/20/17 07:00 15:00 23:00 07:00 15:00 23:00 Intake Total 600 ml Balance 600 ml Intake IV Total 600 ml Result Diagram: 09/20/17 0447 09/20/17 044 Imaging Last Impressions Head CT 09/19/171938 Signed Impressions: Service Date/Time: Tuesday, September 19, 2017 20:00 - CONCLUSION: 1. No acute findings in the brain. 2. Moderately severe central and cortical atrophy, stable. Bimal Miles MD Chest X-Ray 09/19/171938 Signed Impressions: Service Date/Time: Tuesday, September 19, 2017 19:44 - CONCLUSION: Linear interface in the lateral right lung extends from apex to base. Differential considerations would include a skin fold and pneumothorax. Recommend additional imaging with an upright expiratory view of the chest. Bimal Miles MD Objective Remarks GENERAL: This is a frail unkept patient that is confused. CARDIOVASCULAR: Regular rate and rhythm without murmurs, gallops, or rubs. RESPIRATORY: Clear to auscultation. Breath sounds equal bilaterally. No wheezes , rales, or rhonchi. GASTROINTESTINAL: Abdomen soft, non-tender, nondistended. No hepato-splenomegaly , or palpable masses. No guarding. MUSCULOSKELETAL: Muscle waisting. Bitemporal waisting. 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 Extremities without clubbing, cyanosis, or edema. No joint tenderness, effusion , or edema noted. No calf tenderness. NEUROLOGICAL: Awake and confused. Motor and sensory grossly within normal limits. Normal speech. A/P Problem List: (1) Altered mental status ICD Code: R41.82 - Altered mental status, unspecified Status: Acute (2) Dehydration ICD Code: E86.0 - Dehydration Status: Acute Assessment and Plan 87 y/o female with a history of HLD, HTN, gerd and iron deficiency anemia was brought in by [facility] after a neighbor states she was unable to care for herself. Acute encephalopathy, unknown etiology, possible dehydration, UA negative Head CT reviewed and shows no acute abnormalities Neuro checks Drug screen ordered Case management for possible placement Pt eval and treat Dehydration, bun 44. IVF for hydration Trend labs in AM. Improving. Monitor. Hypokalemia, potassium 3.2 on admission Replace and monitor potassium added to IVF, trend labs Mag 2.3. Monitor Elevated troponin, trop .07, no active chest pain Serial troponin 0.07-->0.09. 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 Add ensure, multivitamins, megace. Consult mail censor DVT prophylaxis: Heparin Discussed Condition With Patient, nurse Discharge Planning DC to snf in stable condition To f/u as OP with PCP and consultants Diet healthy heart Activity ad jesusita as evens Meds per med reconciliations Ashlie Ramirez MD Sep 20, 2017 09:25
[2017-09-20] MEDS ORDERED: POTASSIUM CHLORIDE 10 MEQ CONTROLLED RELEASE TAB PO ONE (09:30)
[2017-09-20] MEDS ORDERED: MEGE40S PO (10:11)
[2017-09-20] MEDS ORDERED: THERTAB15 PO (10:11)
[2017-09-20] MEDS: MULTIVITAMIN TAB PO SCH (10:46)
[2017-09-20] MEDS: MEGESTROL ACETATE SUSP 400 MG/10 ML CUP PO SCH (10:53)
[2017-09-20 11:54] VITALS: BP 136/60; PULSE 84; RESP 16; TEMP 97.7; O2SAT 96
[2017-09-20 16:34] VITALS: BP 126/76; PULSE 87; RESP 16; TEMP 97.6
[2017-09-20 17:29] VITALS: BP 118/64; PULSE 92; RESP 18; TEMP 97.5; O2SAT 94
--- NOTE | 2017-09-20 20:47 | EKG ---
Date Performed: 09/19/2017 Time Performed: 20:32:34 PTAGE: 87 years EKG: Sinus rhythm WITH SINUS ARRHYTHMIA NORMAL ECG PREVIOUS TRACING : 07/22/2017 11.41 DOCTOR: Juany Hu Interpretating Date/Time 09/20/2017 20:42:18
[2017-09-20 22:09] VITALS: BP 132/64; PULSE 84; RESP 16; TEMP 98; O2SAT 95
[2017-09-21] VITALS (7 sets, daily range): BP systolic 121–206; BP diastolic 58–98; PULSE 81–135; RESP 16–18; TEMP 97.6–98.8; O2SAT 95–97
[2017-09-21] MEDS: 1/2 NS + KCL 20 MEQ INJ 1,000 ML IV SCH ×3 (06:50→18:57)
[2017-09-21] MEDS ORDERED: WALKER WHEELS/F1 MIS (08:24)
[2017-09-21 08:35] LABS: BICARBONATE 25.5 MEQ/L (21.0-32.0); POTASSIUM 4.4 MEQ/L (3.5-5.1)
[2017-09-21] MEDS: SODIUM CHLORIDE 0.9% FLUSH 10 ML FLUSH IV FLUSH SCH ×2 (09:00→21:00)
[2017-09-21] MEDS: MULTIVITAMIN TAB PO SCH (09:53)
[2017-09-21] MEDS: MEGESTROL ACETATE SUSP 400 MG/10 ML CUP PO SCH (09:53)
[2017-09-21] MEDS: HEPARIN SODIUM - SQ 10,000 UNITS/ML VIAL SQ SCH ×2 (11:06→23:00)
--- NOTE | 2017-09-21 15:06 | HHI.PR ---
Subjective Remarks awake, state her name ff some commands denies any pain unknown baseline Objective Vitals Vital Signs Date Time Temp Pulse Resp B/P (MAP) Pulse Ox O2 Delivery O2 Flow Rate FiO2 09/21/17 12:52 97.6 135 16 159/83 (108) 96 09/21/17 09:27 98.8 98 16 126/70 (88) 97 09/21/17 06:03 97.8 85 18 146/70 (95) 95 09/21/17 01:19 97.7 81 18 121/58 (79) 95 09/20/17 22:09 98.0 84 16 132/64 (86) 95 09/20/17 17:29 97.5 92 18 118/64 (82) 94 09/20/17 16:34 97.6 87 16 126/76 (93) I/O 09/20/17 09/20/17 09/20/17 09/21/17 09/21/17 09/21/17 07:00 15:00 23:00 07:00 15:00 23:00 Intake Total 1320 ml 1240 ml 756 ml 1000 ml Balance 1320 ml 1240 ml 756 ml 1000 ml Intake Oral 720 ml 240 ml IV Total 600 ml 1000 ml 756 ml 1000 ml # Voids 2 # Bowel Movements 2 Result Diagram: 09/20/17 0447 09/21/17 0655 Imaging Last Impressions Head CT 09/19/171938 Signed Impressions: Service Date/Time: Tuesday, September 19, 2017 20:00 - CONCLUSION: 1. No acute findings in the brain. 2. Moderately severe central and cortical atrophy, stable. Bimal Miles MD Chest X-Ray 09/19/171938 Signed Impressions: Service Date/Time: Tuesday, September 19, 2017 19:44 - CONCLUSION: Linear interface in the lateral right lung extends from apex to base. Differential considerations would include a skin fold and pneumothorax. Recommend additional imaging with an upright expiratory view of the chest. Bimal Miles MD Objective Remarks awake and alert, oriented to person ff commands, no other meaningful interaction anicteric no rales or wheezes regular rhythm abdomen soft extremiteis- ulnar deviation moves all extremities spontaenously A/P Problem List: (1) Altered mental status ICD Code: R41.82 - Altered mental status, unspecified Status: Acute (2) Dehydration ICD Code: E86.0 - Dehydration Status: Acute Assessment and Plan 87 y/o female with a history of HLD, HTN, gerd and iron deficiency anemia was brought in by [facility] after a neighbor states she was unable to care for herself. Acute encephalopathy, unknown etiology, possible dehydration, UA negative likely some baseline dementia Head CT reviewed and shows no acute abnormalities Neuro checks Drug screen negative Case management for possible placement Pt eval and treat cognitive evaluation Dehydration, bun 44. IVF for hydration Improving. Monitor. poor po intake- dietitian consult ask speech to do a swallowing evaluation and cognitive eval too Hypokalemia, potassium 3.2 on admission- imrpoved Replace and monitor potassium added to IVF Mag 2.3. Monitor Elevated troponin- non specific , trop .07, no active chest pain Serial troponin 0.07-->0.09. 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 Add ensure, multivitamins, megace. Consult facer operator DVT prophylaxis: Heparin Discussed Condition With Patient, nurse Discharge Planning needs safe supervised condition - ask CM for assistance Segun Ramírez MD Sep 21, 2017 15:06
[2017-09-21] MEDS ORDERED: cloNIDine HCL 0.1 MG TAB PO PRN (17:45)
[2017-09-21] MEDS: sulfaSALAzine 500 MG TAB PO SCH (21:00)
[2017-09-21] MEDS: ENALAPRILAT 1.25 MG/ML VIAL IV PUSH PRN (21:08)
[2017-09-21] MEDS: METOPROLOL SUCCINATE 50 MG EXTENDED RELEASE TAB PO SCH (21:08)
[2017-09-21] MEDS: FAMOTIDINE 20 MG TAB PO SCH (21:08)
[2017-09-21] MEDS: ENALAPRIL MALEATE 10 MG TAB PO SCH (21:08)
[2017-09-22] VITALS: BP 137/81; PULSE 98; RESP 20; TEMP 97.6; O2SAT 95
[2017-09-22] MEDS: 1/2 NS + KCL 20 MEQ INJ 1,000 ML IV SCH (02:59)
[2017-09-22 04:00] VITALS: BP 174/84; PULSE 95; RESP 20; TEMP 98; O2SAT 97
[2017-09-22] MEDS: ENALAPRILAT 1.25 MG/ML VIAL IV PUSH PRN ×3 (06:16→20:48)
[2017-09-22 08:00] VITALS: BP 137/65; PULSE 102; RESP 18; TEMP 98.4; O2SAT 95
[2017-09-22] MEDS: METOPROLOL SUCCINATE 50 MG EXTENDED RELEASE TAB PO SCH ×2 (09:00→20:51)
[2017-09-22] MEDS: SODIUM CHLORIDE 0.9% FLUSH 10 ML FLUSH IV FLUSH SCH ×2 (09:00→20:53)
[2017-09-22] MEDS: FAMOTIDINE 20 MG TAB PO SCH ×2 (09:00→20:52)
[2017-09-22] MEDS: MULTIVITAMIN TAB PO SCH ×2 (09:00)
[2017-09-22] MEDS: ENALAPRIL MALEATE 10 MG TAB PO SCH ×2 (09:00→20:51)
[2017-09-22] MEDS: sulfaSALAzine 500 MG TAB PO SCH ×2 (09:00→20:52)
[2017-09-22] MEDS: MEGESTROL ACETATE SUSP 400 MG/10 ML CUP PO SCH ×2 (09:00)
[2017-09-22] MEDS: ASPIRIN 81 MG CHEW TAB CHEW SCH (09:00)
[2017-09-22 11:45] VITALS: BP 185/92; PULSE 99; RESP 18; TEMP 98.1; O2SAT 97
[2017-09-22] MEDS: HEPARIN SODIUM - SQ 10,000 UNITS/ML VIAL SQ SCH ×2 (12:00→23:00)
[2017-09-22 14:34] VITALS: BP 171/96
--- NOTE | 2017-09-22 15:13 | HHI.PR ---
Subjective Remarks patient stated name not eating Objective Vitals Vital Signs Date Time Temp Pulse Resp B/P (MAP) Pulse Ox O2 Delivery O2 Flow Rate FiO2 09/22/17 14:34 171/96 (121) Manual Cuff/Auscultation 09/22/17 11:45 98.1 99 18 185/92 (123) 97 09/22/17 08:00 98.4 102 18 137/65 (89) 95 09/22/17 04:00 98.0 95 20 174/84 (114) 97 09/22/17 00:00 97.6 98 20 137/81 (99) 95 09/21/17 20:00 97.6 107 18 206/96 (132) 97 09/21/17 15:40 170/90 (116) 09/21/17 15:30 97.8 113 17 204/98 (133) 95 I/O 09/21/17 09/21/17 09/21/17 09/22/17 09/22/17 09/22/17 07:00 15:00 23:00 07:00 15:00 23:00 Intake Total 756 ml 1000 ml Balance 756 ml 1000 ml IV Total 756 ml 1000 ml # Voids 1 1 1 # Bowel Movements 1 Result Diagram: 09/20/17 0447 09/21/17 0655 Imaging Last Impressions Head CT 09/19/171938 Signed Impressions: Service Date/Time: Tuesday, September 19, 2017 20:00 - CONCLUSION: 1. No acute findings in the brain. 2. Moderately severe central and cortical atrophy, stable. Bimal Miles MD Chest X-Ray 09/19/171938 Signed Impressions: Service Date/Time: Tuesday, September 19, 2017 19:44 - CONCLUSION: Linear interface in the lateral right lung extends from apex to base. Differential considerations would include a skin fold and pneumothorax. Recommend additional imaging with an upright expiratory view of the chest. Bimal Miles MD Objective Remarks awake, oriented to person ff commands, no other meaningful interaction anicteric no rales or wheezes regular rhythm abdomen soft extremities- ulnar deviation moves all extremities spontaenously A/P Problem List: (1) Altered mental status ICD Code: R41.82 - Altered mental status, unspecified Status: Acute (2) Dehydration ICD Code: E86.0 - Dehydration Status: Acute Assessment and Plan 87 y/o female with a history of HLD, HTN, gerd and iron deficiency anemia was brought in by [facility] after a neighbor states she was unable to care for herself. Acute encephalopathy, unknown etiology, possible dehydration, UA negative likely some baseline dementia MS not improving Head CT reviewed and shows no acute abnormalities Neuro checks Drug screen negative Case management for possible placement Pt eval and treat cognitive evaluation Dehydration, IVF for hydration- change to IVF with D5NS + KCL Improving. Monitor. poor po intake- dietitian consult ask speech to do a swallowing evaluation and cognitive eval too candidate for PEG Hypokalemia, potassium 3.2 on admission- imrpoved Replace and monitor potassium added to IVF Mag 2.3. Monitor Elevated troponin- non specific , trop .07, no active chest pain Serial troponin 0.07-->0.09. No active chest pain HTN, chronic - restart home meds- toprol bid PRNS for now- clonidine Severe protein calorie malnutrition, with weak hand air and water filler, muscle waisting, bitemporal waisting. Add ensure, multivitamins, megace. 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
--- NOTE | 2017-09-22 16:10 | PD.CONS ---
Consult Service Palliative Care Consult Requested By Dr. Ramírez Primary Care Physician Anastacia Hall, DO Reason for Consultation a. To assist with evaluation and management of symptoms including: weakness , AMS, malnutrition b. To assist medical decision maker(s) with: better understanding of current medical conditions; weighing benefits/burdens of medical treatment options; making medical treatment decisions. HPI History of Present Illness This 87-year-old patient presented to the ED on 09/19/17 via EMS from her home. EMS reporting that she had not been well for the past week or so. She lives alone and apparently a neighbor came and checked on her regularly in that week she had not been able to care for herself was more confused and had frequent falls. Other medical history significant for hypertension, TIAs. Patient not able to provide additional history at presentation. * ED course: See unremarkable, chemistry noted with elevated BUN 44/creatinine 0.71. Troponin 0.07. CT head-negative for acute process noted moderate to severe cortical atrophy. He had CXR concerning for pneumothorax repeat indicates no pneumothorax. UA indicative possible UTI. Patient admitted for further evaluation and management. * Case management is consulted for assistance with possible placement. Patient more awake in the following days denying nausea vomiting chest pain or shortness of breath. She is not eating much because of decreased appetite endorses feeling weak. Started on Megace dietitian consulted 09/20. Plan for DC to SNF as she is not safe to go home. UA negative mental status likely secondary to baseline dementia. * 09/22 patient still not eating. ST requested for swallowing evaluation. Patient may require PEG. Family is not certain that is consistent with patient advanced directives. Palliative care consulted to assist with clarification of goals of treatment. Seen in room no visitors present; she is lethargic minimally stirs to exam. Appears comfortable. Extremely frail and cachectic in appearance with significant muscle atrophy to all extremities. She does not follow any commands she opens 1 I however it's difficult to tell if she is actually engaging with examiner. She does not appear to be painful to my exam. *Dual visit with [facility] Function/Cognitive Trajectory Patient apparently lived alone and was independent with ADLs prior to this admission may have used a cane and walker though appears she has had some cognitive and functional decline; thus her presentation to the ED. neighbor informs that pt paid her own bills, kept appointments etc up until a week or so ago when she dramatically became more confused, not recognizing her, and refusing help. Neighbor Marco borwn shower 2x per week due to physical issues from arthritis, also made dinner for her nightly. Review of Systems ROS Limitations: Clinical Condition, Altered Mental Status, Other (poor historian minimally responsive) Past Family Social History Coded Allergies: penicillin G (Unverified Allergy, Severe, RASH, 07/22/17) warfarin (Unverified Allergy, Severe, Rash, 07/22/17) Past Medical History arthritis Hypertension Hyperlipidemia GERD TIA Past Surgical History Lumbar cataract surgery, lens implant left Laser surgery right eye Hernia surgery 2 Appendectomy Bilateral total knee Foot surgery Cardiac stents 2006 Basal cell carcinoma removal right ear . Reported Medications Macrobid (Nitrofurantoin Monoh/Nitrofur Macro) 100 Mg Cap 100 Mg PO BID 7 Days Aspirin 81 Mg Chew 81 Mg CHEW DAILY Ferrous Sulfate ER (Ferrous Sulfate) 140 Mg (45 Mg Iron) Tab 140 Mg PO DAILY Hydrochlorothiazide 12.5 Mg Cap 12.5 Mg PO DAILY Sulfasalazine 500 Mg Tab 1,000 Mg PO BID Zocor (Simvastatin) 40 Mg Tab 40 Mg PO HS Ranitidine (Ranitidine HCl) 150 Mg Tab 150 Mg PO BID Toprol XL (Metoprolol Succinate) 50 Mg Tab 50 Mg PO BID Hydroxychloroquine (Hydroxychloroquine Sulfate) 200 Mg Tab 200 Mg PO BID Takw with food Vasotec (Enalapril Maleate) 20 Mg Tab 20 Mg PO BID . Current Medications Medications (Trade) Dose Ordered Sig/Ann Route Start Time Stop Time Status Last Admin (NS Flush) 2 ml UNSCH PRN IV FLUSH 09/19/17 23:30 (NS Flush) 2 ml BID IV FLUSH 09/20/17 09:00 (Zofran Inj) 4 mg Q6H PRN IVP 09/19/17 23:30 (Heparin Inj) 5,000 units Q12H SQ 09/19/17 23:00 09/22/17 12:00 (Narcan Inj) 0.4 mg UNSCH PRN IV PUSH 09/19/17 23:30 (Milk Of Magnesia Liq) 30 ml Q12H PRN PO 09/19/17 23:30 09/20/17 09:17 (Senokot) 17.2 mg Q12H PRN PO 09/19/17 23:30 09/20/17 09:17 (Dulcolax Supp) 10 mg DAILY PRN RECTAL 09/19/17 23:30 09/20/17 09:19 (Lactulose Liq) 30 ml DAILY PRN PO 09/19/17 23:30 (Megace Liq) 400 mg DAILY PO 09/20/17 11:00 09/21/17 09:53 (Theragran) 1 tab DAILY PO 09/20/17 09:30 09/21/17 09:53 (Aspirin Chew) 81 mg DAILY CHEW 09/22/17 09:00 (Vasotec) 20 mg BID PO 09/21/17 21:00 09/21/17 21:08 (Megace Liq) 400 mg DAILY PO 09/22/17 09:00 (Toprol Xl) 50 mg BID PO 09/21/17 21:00 09/21/17 21:08 (Theragran) 1 tab DAILY PO 09/22/17 09:00 (Azulfidine) 1,000 mg BID PO 09/21/17 21:00 (Pepcid) 20 mg BID PO 09/21/17 21:00 09/21/17 21:08 (Catapres) 0.1 mg Q6H PRN PO 09/21/17 17:45 (Vasotec Inj) 1.25 mg Q6H PRN IV PUSH 09/21/17 19:15 09/22/17 11:59 Potassium Chloride/Dextrose/ Sod Cl 1,000 ml @ 70 mls/hr [id number] IV 09/22/17 15:30 Family History Patient is unable to provide family history Substance Use Tobacco: None per EMR Alcohol: None. EMR Prescription med abuse: None per EMR Illicits: None per EMR . Psychosocial History Patient . Has lives alone apparently for the past 6 months when a former roommate and friend had to move out of the state due to cancer. A local neighbor Marco has been helping her by preparing dinner for her, and helping her shower twice weekly.neighbor informs that pt paid her own bills, kept appointments etc up until a week or so ago when she dramatically became more confused, not recognizing her, and refusing help. Patient also supported by [id number] Jayce who is apparently working on travel arrangements to come in town in the coming days he may have power of mergers and acquisitions attorney for this patient. Patient also supported by nephew Shoaib who may also be arranging to travel in town. Further psychosocial history pending family meeting. Spiritual/Cultural Factors not known. Living Will: Completed, but not made available Health Care Surrogate: Completed, but not made available Ethical and Legal Issues Due to clinical condition patient is unable to participate in decision-making. Not clear if she will regain capacity. Family is working on travel arrangements to come in town apparently one of the family members may be designated as a surrogate or POA they report patient has advanced directives they are obtaining copies of. Physical Exam Vital Signs Date Time Temp Pulse Resp B/P (MAP) Pulse Ox O2 Delivery O2 Flow Rate FiO2 09/22/17 14:34 171/96 (121) Manual Cuff/Auscultation 09/22/17 11:45 98.1 99 18 185/92 (123) 97 09/22/17 08:00 98.4 102 18 137/65 (89) 95 09/22/17 04:00 98.0 95 20 174/84 (114) 97 09/22/17 00:00 97.6 98 20 137/81 (99) 95 09/21/17 20:00 97.6 107 18 206/96 (132) 97 Exam CONSTITUTIONAL/GENERAL: thin, cachectic frail female, no apparent distress TUBES/LINES/DRAINS:PIV RUE SKIN: No jaundice, rashes, or lesions. several small areas of ecchymosis. No wounds seen anteriorly. Skin temperature appropriate. Not diaphoretic. HEAD: Atraumatic. Normocephalic. EYES: Does not open eyes for exam. ENT: Nose without bleeding or purulent drainage. Limited oropharynx exam is patient does not awaken to participate no apparent lesions or oral exudates NECK: Trachea midline. Supple, nontender. No palpable thyroid enlargement or nodularity. CARDIOVASCULAR: Regular rate and rhythm without murmurs. No JVD. Peripheral pulses symmetric. RESPIRATORY/CHEST: Symmetric, unlabored respirations. Room air. Clear to auscultation. Breath sounds equal bilaterally. GASTROINTESTINAL: Abdomen soft, non-tender, nondistended. No hepato-splenomegaly , or palpable masses. No guarding. Bowel sounds present. GENITOURINARY: Without palpable bladder distension. Adult brief in place. MUSCULOSKELETAL: Extremities without clubbing, cyanosis, or edema. No joint effusion noted. + swan neck deformity bilateral hands/fingers LYMPHATICS: No palpable cervical or supraclavicular adenopathy. NEUROLOGICAL: Lethargic minimally stirs to exam. Does not follow any commands. Does not verbalize. Observe some slight movement spontaneously. PSYCHIATRIC: No obvious anxiety/depression--limited assessment due to clinical condition. Diagnostic Tests Laboratory Laboratory Tests Test 09/19/17 19:45 09/19/17 22:00 09/20/17 02:25 09/20/17 04:47 White Blood Count 8.1 TH/MM3 (4.0-11.0) 6.6 TH/MM3 (4.0-11.0) Red Blood Count 4.26 MIL/MM3 (4.00-5.30) 4.03 MIL/MM3 (4.00-5.30) Hemoglobin 12.6 GM/DL (11.6-15.3) 11.9 GM/DL (11.6-15.3) Hematocrit 38.3 % (35.0-46.0) 36.2 % (35.0-46.0) Mean Corpuscular Volume 90.0 FL (80.0-100.0) 89.9 FL (80.0-100.0) Mean Corpuscular Hemoglobin 29.7 PG (27.0-34.0) 29.5 PG (27.0-34.0) Mean Corpuscular Hemoglobin Concent 33.0 % (32.0-36.0) 32.8 % (32.0-36.0) Red Cell Distribution Width 15.3 % (11.6-17.2) 15.1 % (11.6-17.2) Platelet Count 233 TH/MM3 (150-450) 193 TH/MM3 (150-450) Mean Platelet Volume 8.4 FL (7.0-11.0) 7.9 FL (7.0-11.0) Neutrophils (%) (Auto) 75.9 % (16.0-70.0) 75.1 % (16.0-70.0) Lymphocytes (%) (Auto) 15.1 % (9.0-44.0) 14.4 % (9.0-44.0) Monocytes (%) (Auto) 6.9 % (0.0-8.0) 7.3 % (0.0-8.0) Eosinophils (%) (Auto) 1.7 % (0.0-4.0) 2.5 % (0.0-4.0) Basophils (%) (Auto) 0.4 % (0.0-2.0) 0.7 % (0.0-2.0) Neutrophils # (Auto) 6.1 TH/MM3 (1.8-7.7) 4.9 TH/MM3 (1.8-7.7) Lymphocytes # (Auto) 1.2 TH/MM3 (1.0-4.8) 1.0 TH/MM3 (1.0-4.8) Monocytes # (Auto) 0.6 TH/MM3 (0-0.9) 0.5 TH/MM3 (0-0.9) Eosinophils # (Auto) 0.1 TH/MM3 (0-0.4) 0.2 TH/MM3 (0-0.4) Basophils # (Auto) 0.0 TH/MM3 (0-0.2) 0.0 TH/MM3 (0-0.2) CBC Comment DIFF FINAL DIFF FINAL Differential Comment Blood Urea Nitrogen 44 MG/DL (7-18) 27 MG/DL (7-18) Creatinine 0.71 MG/DL (0.50-1.00) 0.45 MG/DL (0.50-1.00) Random Glucose 134 MG/DL (74-106) 84 MG/DL (74-106) Total Protein 7.0 GM/DL (6.4-8.2) 6.3 GM/DL (6.4-8.2) Albumin 3.3 GM/DL (3.4-5.0) 2.8 GM/DL (3.4-5.0) Calcium Level 10.5 MG/DL (8.5-10.1) 9.2 MG/DL (8.5-10.1) Alkaline Phosphatase 101 U/L (45-117) 96 U/L (45-117) Aspartate Amino Transf (AST/SGOT) 29 U/L (15-37) 23 U/L (15-37) Alanine Aminotransferase (ALT/SGPT) 25 U/L (10-53) 21 U/L (10-53) Total Bilirubin 0.6 MG/DL (0.2-1.0) 0.6 MG/DL (0.2-1.0) Sodium Level 144 MEQ/L (136-145) 146 MEQ/L (136-145) Potassium Level 3.2 MEQ/L (3.5-5.1) 3.3 MEQ/L (3.5-5.1) Chloride Level 108 MEQ/L (98-107) 110 MEQ/L (98-107) Carbon Dioxide Level 28.9 MEQ/L (21.0-32.0) 28.0 MEQ/L (21.0-32.0) Anion Gap 7 MEQ/L (5-15) 8 MEQ/L (5-15) Estimat Glomerular Filtration Rate 78 ML/MIN (>89) 131 ML/MIN (>89) Magnesium Level 2.3 MG/DL (1.5-2.5) Troponin I 0.07 NG/ML (0.02-0.05) 0.09 NG/ML (0.02-0.05) Thyroid Stimulating Hormone 3rd Gen 1.800 uIU/ML (0.358-3.740) Urine Color YELLOW (YELLW/STRAW) Urine Turbidity HAZY (CLEAR) Urine pH 6.5 (5.0-8.5) Urine Specific [place] 1.017 (1.002-1.035) Urine Protein 30 mg/dL (NEG-TRACE) Urine Glucose (UA) NEG mg/dL (NEG) Urine Ketones NEG mg/dL (NEG) Urine Occult Blood TRACE (NEG) Urine Nitrite NEG (NEG) Urine Bilirubin NEG (NEG) Urine Urobilinogen 2.0 MG/DL (LESS THAN Urine Leukocyte Esterase NEG (NEG) Urine RBC 4 /hpf (0-3) Urine WBC 2 /hpf (0-5) Urine Calcium Oxalate Crystals RARE /hpf (NONE) Urine Amorphous Sediment RARE Urine Mucus FEW /lpf (OCC) Microscopic Urinalysis Comment CATH-CULT NOT IND Urine Opiates Screen NEG (NEG) Urine Barbiturates Screen NEG (NEG) Urine Amphetamines Screen NEG (NEG) Urine Benzodiazepines Screen NEG (NEG) Urine Cocaine Screen NEG (NEG) Urine Cannabinoids Screen NEG (NEG) Vitamin B12 Level 809 PG/ML (193-986) Test 09/20/17 13:49 09/21/17 06:55 Troponin I 0.05 NG/ML (0.02-0.05) Prealbumin 16 MG/DL (20-40) Blood Urea Nitrogen 22 MG/DL (7-18) Creatinine 0.41 MG/DL (0.50-1.00) Random Glucose 77 MG/DL (74-106) Calcium Level 9.6 MG/DL (8.5-10.1) Sodium Level 138 MEQ/L (136-145) Potassium Level 4.4 MEQ/L (3.5-5.1) Chloride Level 107 MEQ/L (98-107) Carbon Dioxide Level 25.5 MEQ/L (21.0-32.0) Anion Gap 6 MEQ/L (5-15) Estimat Glomerular Filtration Rate 146 ML/MIN (>89) Result Diagram: 09/20/17 0447 09/21/17 0655 Imaging Last Impressions Head CT 09/19/171938 Signed Impressions: Service Date/Time: Tuesday, September 19, 2017 20:00 - CONCLUSION: 1. No acute findings in the brain. 2. Moderately severe central and cortical atrophy, stable. Bimal Miles MD Chest X-Ray 09/19/171938 Signed Impressions: Service Date/Time: Tuesday, September 19, 2017 19:44 - CONCLUSION: Linear interface in the lateral right lung extends from apex to base. Differential considerations would include a skin fold and pneumothorax. Recommend additional imaging with an upright expiratory view of the chest. Bimal Miles MD Patient/Family Conference Issues Discussed: Family meeting pending [id number] and possible nephew expected to arrive in town sometime in the coming days. Voicemail left today with palliative contact information. . Assessment and Plan Disease Oriented Problem List: (1) Dehydration (2) Altered mental status (3) Hypertension (4) GERD (gastroesophageal reflux disease) (5) Arthritis Symptom Scale: (1) Encephalopathy 0-10 Scale: Unable to quantify (2) Weakness 0-10 Scale: Unable to quantify (3) Malnutrition 0-10 Scale: Unable to quantify Pertinent Non-Medical Issues Psychosocial:Patient . Has lives alone apparently for the past 6 months when a former roommate and friend had to move out of the state due to cancer. A local neighbor Marco has been helping her by preparing dinner for her, and helping her shower twice weekly.neighbor informs that pt paid her own bills, kept appointments etc up until a week or so ago when she dramatically became more confused, not recognizing her, and refusing help. Patient also supported by [id number] Jayce who is apparently working on travel arrangements to come in town in the coming days he may have power of mergers and acquisitions attorney for this patient. Patient also supported by nephew Shoaib who may also be arranging to travel in town. Further psychosocial history pending family meeting. Spiritual:not known Legal:Due to clinical condition patient is unable to participate in decision- making. Not clear if she will regain capacity. Family is working on travel arrangements to come in town apparently one of the family members may be designated as a surrogate or POA they report patient has advanced directives they are obtaining copies of. Ethical issues impacting care: NO Ethical issues identified. Important Contacts Niece Alee Bhatt [id number] Jayce Bhatt Nephew -Shoaib Bhatt [phone] . Prognosis This patient was admitted for altered mental status of unknown etiology. She has some dehydration but otherwise diagnostics thus far negative for etiology. Question of some underlying dementia process. In her current frail status, malnourished if she continues she would expected to continue to decline and experience complications may be appropriate for hospice. Code Status: Full Code Plan * Legal decision maker:Due to clinical condition patient is unable to participate in decision-making. Not clear if she will regain capacity. Family is working on travel arrangements to come in town apparently one of the family members may be designated as a surrogate or POA they report patient has advanced directives they are obtaining copies of. * Goals: TBD, family meeting pending family arrival in town and exploration of advanced directives * CODE STATUS: Full code by default * SYMPTOMS: --malnutrition: albumin 2.8-patient with poor appetite. Appears very frail, with significant muscle atrophy. Just started on Megace. Dietitian consult pending nutritional supplements have been added.may require feeding tube if goals aggressive. --weakness/debility-likely chronic? History of arthritis notably deformed hands secondary to. Neighbor Assisted with showering due to this weakness and debility. -- AMS- ? underlying dementia , prior TIA, patient apparently oriented appropriate able to manage her bank account bills and appointments prior to the past week or so Palliative care will continue to follow during hospital course as condition evolves, to assist patient/decision-maker with understanding of medical conditions, weighing benefits/burdens of treatment options, for clarification of goals of treatment. Additionally will assist with any symptoms of palliative concern Time Spent Total Floor Time (mins): 45 (Chart review, PE, calls to family/friend) Thank you for the opportunity to participate in the care of Ms. Bhatt. Attestation To help prompt me to consider important information that might be impacting today's encounter and assessment, information from prior notes written by myself or my colleagues may have been "brought forward" into today's note. My signature on this note, however, is an attestation that I personally performed the exam, history, and/or decision-making noted today, and, unless otherwise indicated, the interactions with patient, family, and staff as well as the review of records all occurred today. I also attest that the listed assessment and stated plan reflect my best clinical judgment today based on the combination of historical information, prior notes, and today's exam/ interactions. When time spent is documented, it refers only to time spent today by the signer, or if indicated, combined time spent today by collaborating physician/nurse practitioner. Chanell Staples Sep 22, 2017 16:10
[2017-09-22] MEDS: D5-NS + KCL 20 MEQ INJ 1,000 ML IV SCH (16:52)
[2017-09-22 20:00] VITALS: BP 102/65; PULSE 113; RESP 20; TEMP 98.4; O2SAT 94
[2017-09-23] VITALS: BP 151/75; PULSE 87; RESP 20; TEMP 98.7; O2SAT 97
[2017-09-23 04:00] VITALS: BP_SYST 109; BP_SYST 97; BP_DIAS 58; BP_DIAS 91; PULSE 91; RESP 20; TEMP 98.4; O2SAT 97
[2017-09-23] MEDS: D5-NS + KCL 20 MEQ INJ 1,000 ML IV SCH ×3 (05:48→23:37)
[2017-09-23 08:00] VITALS: BP 165/85; PULSE 100; RESP 16; TEMP 98.4; O2SAT 98
[2017-09-23] MEDS: MEGESTROL ACETATE SUSP 400 MG/10 ML CUP PO SCH ×2 (08:37)
[2017-09-23] MEDS: ASPIRIN 81 MG CHEW TAB CHEW SCH (08:37)
[2017-09-23] MEDS: sulfaSALAzine 500 MG TAB PO SCH ×2 (08:37→21:00)
[2017-09-23] MEDS: SODIUM CHLORIDE 0.9% FLUSH 10 ML FLUSH IV FLUSH SCH ×2 (08:37→21:00)
[2017-09-23] MEDS: FAMOTIDINE 20 MG TAB PO SCH ×2 (08:37→21:00)
[2017-09-23] MEDS: MULTIVITAMIN TAB PO SCH ×2 (08:37→08:38)
[2017-09-23] MEDS: METOPROLOL SUCCINATE 50 MG EXTENDED RELEASE TAB PO SCH ×2 (08:38→21:00)
[2017-09-23] MEDS: ENALAPRIL MALEATE 10 MG TAB PO SCH ×2 (08:38→21:00)
[2017-09-23] MEDS: ENALAPRILAT 1.25 MG/ML VIAL IV PUSH PRN (08:51)
[2017-09-23 12:00] VITALS: BP 161/81; PULSE 96; RESP 16; TEMP 98.1; O2SAT 96
[2017-09-23] MEDS: HEPARIN SODIUM - SQ 10,000 UNITS/ML VIAL SQ SCH ×2 (12:29→23:47)
--- NOTE | 2017-09-23 13:41 | HHI.PR ---
Subjective Remarks In bed, appears tired and doesn't answer most of the questions. No pain. No n/v/ d/c. Objective Vitals Vital Signs Date Time Temp Pulse Resp B/P (MAP) Pulse Ox O2 Delivery O2 Flow Rate FiO2 09/23/17 08:00 98.4 100 16 165/85 (111) 98 09/23/17 04:00 98.4 91 20 109/58 (75) 97 09/23/17 00:00 98.7 87 20 151/75 (100) 97 09/22/17 20:00 98.4 113 20 102/65 (77) 94 09/22/17 14:34 171/96 (121) Manual Cuff/Auscultation I/O 09/22/17 09/22/17 09/22/17 09/23/17 09/23/17 09/23/17 07:00 15:00 23:00 07:00 15:00 23:00 Intake Total 977 ml Balance 977 ml IV Total 977 ml # Voids 1 2 1 # Bowel Movements 0 1 1 Result Diagram: 09/20/17 0447 09/21/17 0655 Imaging Last Impressions Head CT 09/19/171938 Signed Impressions: Service Date/Time: Tuesday, September 19, 2017 20:00 - CONCLUSION: 1. No acute findings in the brain. 2. Moderately severe central and cortical atrophy, stable. Bimal Miles MD Chest X-Ray 09/19/171938 Signed Impressions: Service Date/Time: Tuesday, September 19, 2017 19:44 - CONCLUSION: Linear interface in the lateral right lung extends from apex to base. Differential considerations would include a skin fold and pneumothorax. Recommend additional imaging with an upright expiratory view of the chest. Bimal Miles MD Objective Remarks GENERAL: This is a frail unkept patient that is confused. CARDIOVASCULAR: Regular rate and rhythm without murmurs, gallops, or rubs. RESPIRATORY: Clear to auscultation. Breath sounds equal bilaterally. No wheezes , rales, or rhonchi. GASTROINTESTINAL: Abdomen soft, non-tender, nondistended. No hepato-splenomegaly , or palpable masses. No guarding. MUSCULOSKELETAL: Muscle waisting. Bitemporal waisting. 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 Extremities without clubbing, cyanosis, or edema. No joint tenderness, effusion , or edema noted. No calf tenderness. NEUROLOGICAL: Awake and confused. Motor and sensory grossly within normal limits. Normal speech. A/P Problem List: (1) Altered mental status ICD Code: R41.82 - Altered mental status, unspecified Status: Acute (2) Dehydration ICD Code: E86.0 - Dehydration Status: Acute Assessment and Plan 87 y/o female with a history of HLD, HTN, gerd and iron deficiency anemia was brought in by [facility] after a neighbor states she was unable to care for herself. Acute encephalopathy, unknown etiology, possible dehydration, UA negative Head CT reviewed and shows no acute abnormalities Neuro checks Drug screen ordered Case management for possible placement Pt eval and treat Dehydration, bun 44. IVF for hydration Trend labs in AM. Improving. Monitor. Hypokalemia, potassium 3.2 on admission Replace and monitor potassium added to IVF, trend labs Mag 2.3. Monitor Elevated troponin, trop .07, no active chest pain Serial troponin 0.07-->0.09. 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 Add ensure, multivitamins, megace. Consult loan expeditor DVT prophylaxis: Heparin Discussed Condition With Patient, nurse, case management Discharge Planning Needs safe supervised condition - CM following Palliative care consult - to determine goals of care Niece and brother in law- Jayce and Alee Bhatt will be coming around 4 pm- driving from out of town Advance directives- - have a living will from years ago -will bring it in Does not want any NGT for now- d/w tube feedings for nutrition and meds administration Agrees with Palliative consult Ashlie Ramirez MD Sep 23, 2017 13:41
--- NOTE | 2017-09-23 15:10 | HHI.HCPN ---
Reason for visit a. To assist with evaluation and management of symptoms including: weakness , AMS, malnutrition b. To assist medical decision maker(s) with: better understanding of current medical conditions; weighing benefits/burdens of medical treatment options; making medical treatment decisions. Subjective/Interval History Patient examined in room for follow regarding establishing goals of care, no visitors present, family to arrive from out of town this afternoon. Patient is lethargic, minimally responsive during exam. Does not answer most questions, the only response elicited was when asked where she was she stated "at home". She does not follow any commands and keeps her eyes closed during the majority of the exam. Advance Directives Living Will: Completed, but not made available Health Care Surrogate: Completed, but not made available Objective Vital Signs Date Time Temp Pulse Resp B/P (MAP) Pulse Ox O2 Delivery O2 Flow Rate FiO2 09/23/17 08:00 98.4 100 16 165/85 (111) 98 09/23/17 04:00 98.4 91 20 109/58 (75) 97 09/23/17 00:00 98.7 87 20 151/75 (100) 97 09/22/17 20:00 98.4 113 20 102/65 (77) 94 Intake & Output 09/23/17 09/23/17 07:00 19:00 # Voids 1 # Bowel Movements 1 Physical Exam CONSTITUTIONAL/GENERAL: Thin, cachectic frail female, no apparent distress TUBES/LINES/DRAINS:PIV RUE SKIN: No jaundice, rashes, or lesions. several small areas of ecchymosis. No wounds seen anteriorly. Skin temperature appropriate. Not diaphoretic. ENT: Nose without bleeding or purulent drainage. NECK: Trachea midline. Supple, nontender. CARDIOVASCULAR: Regular rate and rhythm without murmurs. No JVD. Peripheral pulses symmetric. RESPIRATORY/CHEST: Symmetric, unlabored respirations. Room air. Clear to auscultation. Breath sounds equal bilaterally. GASTROINTESTINAL: Abdomen soft, non-tender, nondistended. No hepato-splenomegaly , or palpable masses. No guarding. Bowel sounds present. GENITOURINARY: Without palpable bladder distension. Adult brief in place. MUSCULOSKELETAL: Extremities without clubbing, cyanosis, or edema. No joint effusion noted. + swan neck deformity bilateral hands/fingers NEUROLOGICAL: Lethargic minimally stirs to exam. Does not follow any commands. Observe some slight movement spontaneously. PSYCHIATRIC: No obvious anxiety/depression--limited assessment due to clinical condition. Diagnostic Tests Laboratory Laboratory Tests Test 09/21/17 06:55 Blood Urea Nitrogen 22 MG/DL (7-18) Creatinine 0.41 MG/DL (0.50-1.00) Random Glucose 77 MG/DL (74-106) Calcium Level 9.6 MG/DL (8.5-10.1) Sodium Level 138 MEQ/L (136-145) Potassium Level 4.4 MEQ/L (3.5-5.1) Chloride Level 107 MEQ/L (98-107) Carbon Dioxide Level 25.5 MEQ/L (21.0-32.0) Anion Gap 6 MEQ/L (5-15) Estimat Glomerular Filtration Rate 146 ML/MIN (>89) Result Diagram: 09/20/17 0447 09/21/17 0655 Assessment and Plan Disease Oriented Problem List: (1) Dehydration (2) Altered mental status (3) Hypertension (4) GERD (gastroesophageal reflux disease) (5) Arthritis Symptom Scale: (1) Encephalopathy 0-10 Scale: Unable to quantify (2) Weakness 0-10 Scale: Unable to quantify (3) Malnutrition 0-10 Scale: Unable to quantify Pertinent Non-Medical Issues Psychosocial:Patient . Has lives alone apparently for the past 6 months when a former roommate and friend had to move out of the state due to cancer. A local neighbor Marco has been helping her by preparing dinner for her, and helping her shower twice weekly.neighbor informs that pt paid her own bills, kept appointments etc up until a week or so ago when she dramatically became more confused, not recognizing her, and refusing help. Patient also supported by [id number] Jayce who is apparently working on travel arrangements to come in town in the coming days he may have power of civil attorney for this patient. Patient also supported by nephew Shoaib who may also be arranging to travel in town. Further psychosocial history pending family meeting. Spiritual:not known Legal:Due to clinical condition patient is unable to participate in decision- making. Not clear if she will regain capacity. Family is working on travel arrangements to come in town apparently one of the family members may be designated as a surrogate or POA they report patient has advanced directives they are obtaining copies of. Ethical issues impacting care: No Ethical issues identified. Important Contacts Niece Alee Bhatt [id number] Jayce Bhatt Nephew -Shoaib Bhatt [phone] . Prognosis This patient was admitted for altered mental status of unknown etiology. She has some dehydration but otherwise diagnostics thus far negative for etiology. Question of some underlying dementia process. In her current frail status, malnourished if she continues she would expected to continue to decline and experience complications may be appropriate for hospice. Code Status: Full Code Plan * Legal decision maker: Due to clinical condition patient is unable to participate in decision-making. Not clear if she will regain capacity. Family is en route to come into town and will be renting a hotel to allow time to manage affairs. Apparently one of the family members may be designated as a surrogate or POA they report patient has advanced directives they are obtaining copies of. * Goals: TBD, family meeting pending family arrival in town and exploration of advanced directives, plan to meet tomorrow as they are still en route. Palliative care contact information left with bedside RN and card with contact info left in patient's room. * CODE STATUS: Full code by default * SYMPTOMS: --malnutrition: albumin 2.8-patient with poor appetite. Appears very frail, with significant muscle atrophy. Recently started on Megace. Dietitian consult pending nutritional supplements have been added. May require feeding tube if goals are aggressive. --weakness/debility-likely chronic? History of arthritis notably deformed hands secondary to. Patient's neighbor Assisted with showering due to this weakness and debility. -- AMS- ? underlying dementia , prior TIA, patient apparently oriented appropriate able to manage her bank account bills and appointments prior to the past week or so Palliative care will continue to follow during hospital course as condition evolves, to assist patient/decision-maker with understanding of medical conditions, weighing benefits/burdens of treatment options, for clarification of goals of treatment. Additionally will assist with any symptoms of palliative concern Attestation To help prompt me to consider important information that might be impacting today's encounter and assessment, information from prior notes written by myself or my colleagues may have been "brought forward" into today's note. My signature on this note, however, is an attestation that I personally performed the exam, history, and/or decision-making noted today, and, unless otherwise indicated, the interactions with patient, family, and staff as well as the review of records all occurred today. I also attest that the listed assessment and stated plan reflect my best clinical judgment today based on the combination of historical information, prior notes, and today's exam/ interactions. When time spent is documented, it refers only to time spent today by the signer, or if indicated, combined time spent today by collaborating physician/nurse practitioner. Tonya Arita Sep 23, 2017 15:10
[2017-09-23 16:00] VITALS: BP 116/59; PULSE 99; RESP 16; TEMP 98.9; O2SAT 97
[2017-09-23 21:13] VITALS: BP 117/65; PULSE 101; RESP 20; TEMP 98; O2SAT 95
[2017-09-24 00:28] VITALS: BP 96/52; PULSE 128; RESP 20; TEMP 98.1; O2SAT 92
[2017-09-24 04:45] VITALS: BP 136/65; PULSE 99; RESP 20; TEMP 99.4; O2SAT 96
[2017-09-24 08:00] VITALS: BP 114/69; PULSE 126; RESP 20; TEMP 98.2; O2SAT 95
[2017-09-24] MEDS: ASPIRIN 81 MG CHEW TAB CHEW SCH (09:00)
[2017-09-24] MEDS: FAMOTIDINE 20 MG TAB PO SCH (09:00)
[2017-09-24] MEDS: ENALAPRIL MALEATE 10 MG TAB PO SCH (09:00)
[2017-09-24] MEDS: METOPROLOL SUCCINATE 50 MG EXTENDED RELEASE TAB PO SCH (09:00)
[2017-09-24] MEDS: MEGESTROL ACETATE SUSP 400 MG/10 ML CUP PO SCH ×2 (09:00)
[2017-09-24] MEDS: sulfaSALAzine 500 MG TAB PO SCH (09:00)
[2017-09-24] MEDS: MULTIVITAMIN TAB PO SCH ×2 (09:00)
--- NOTE | 2017-09-24 09:22 | HHI.PR ---
Subjective Remarks Follow-up visit for dehydration, failure to care for self, malnutrition. Patient seen and examined today lying in bed. Awake and alert but confused. Denies pain and discomfort. Denies SOB/ dyspnea. Denies chest pain, palpitations, headaches, dizziness. Denies fevers, chills, n/v/d. Objective Vitals Vital Signs Date Time Temp Pulse Resp B/P (MAP) Pulse Ox O2 Delivery O2 Flow Rate FiO2 09/24/17 08:00 98.2 126 20 114/69 (84) 95 09/24/17 04:45 99.4 99 20 136/65 (88) 96 09/24/17 00:28 98.1 128 20 96/52 (67) 92 09/23/17 21:13 98.0 101 20 117/65 (82) 95 09/23/17 16:00 98.9 99 16 116/59 (78) 97 09/23/17 12:00 98.1 96 16 161/81 (107) 96 I/O 09/23/17 09/23/17 09/23/17 09/24/17 09/24/17 09/24/17 07:00 15:00 23:00 07:00 15:00 23:00 Intake Total 1000 ml 658 ml Balance 1000 ml 658 ml IV Total 1000 ml 658 ml # Bowel Movements 1 1 Result Diagram: 09/20/17 0447 09/21/17 0655 Imaging Last Impressions Head CT 09/19/171938 Signed Impressions: Service Date/Time: Tuesday, September 19, 2017 20:00 - CONCLUSION: 1. No acute findings in the brain. 2. Moderately severe central and cortical atrophy, stable. Bimal Miles MD Chest X-Ray 09/19/171938 Signed Impressions: Service Date/Time: Tuesday, September 19, 2017 19:44 - CONCLUSION: Linear interface in the lateral right lung extends from apex to base. Differential considerations would include a skin fold and pneumothorax. Recommend additional imaging with an upright expiratory view of the chest. Bimal Miles MD Objective Remarks GENERAL: This is a mal-nourished, well-developed patient, in no apparent distress. SKIN: Warm and dry. HEENT: Normocephalic. Pupils equal round and reactive. Nose without bleeding. Airway patent. NECK: Trachea midline. CARDIOVASCULAR: Regular rate and rhythm without murmurs, gallops, or rubs. RESPIRATORY: Clear to auscultation. Breath sounds equal bilaterally. No wheezes , rales, or rhonchi. GASTROINTESTINAL: Abdomen soft, non-tender, nondistended. Bowel Sounds normoactive x4. MUSCULOSKELETAL: Extremities without clubbing, cyanosis, or edema. NEUROLOGICAL: Awake and alert. Oriented to person. Confuse. No focal neuro deficit. Moves all extremities. Normal speech. A/P Problem List: (1) Altered mental status ICD Code: R41.82 - Altered mental status, unspecified Status: Acute (2) Dehydration ICD Code: E86.0 - Dehydration Status: Acute Assessment and Plan 87 y/o female with a history of HLD, HTN, gerd and iron deficiency anemia was brought in by [facility] after a neighbor states she was unable to care for herself. Acute encephalopathy, unknown etiology, possible dehydration, UA negative - Possibly with underlying dementia - Head CT reviewed and shows no acute abnormalities - Neuro checks - Drug screen negative - PT/ OT eval and treat Dehydration, bun 44. IVF for hydration - Trend labs. Improving. Monitor. Hypokalemia, potassium 3.2 on admission - Replace and monitor potassium added to IVF, trend labs - Mag 2.3. Monitor improved. Elevated troponin, trop .07, no active chest pain - Serial troponin 0.07-->0.09. 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 Consult nurse transplant - Consult palliative care for family meeting PEG placement versus hospice DVT prop SCDs Discussed with patient, nursing Discharge Planning Awaiting family meeting. Possible discharge to [facility], SNF, or hospice care facility. Kevin Magana Sep 24, 2017 09:22
[2017-09-24] MEDS: SODIUM CHLORIDE 0.9% FLUSH 10 ML FLUSH IV FLUSH SCH (09:28)
[2017-09-24] MEDS: HEPARIN SODIUM - SQ 10,000 UNITS/ML VIAL SQ SCH (09:29)
[2017-09-24] MEDS: D5-NS + KCL 20 MEQ INJ 1,000 ML IV SCH ×2 (10:24→14:21)
--- NOTE | 2017-09-24 11:58 | HHI.HCPN ---
Reason for visit a. To assist with evaluation and management of symptoms including: weakness , AMS, malnutrition b. To assist medical decision maker(s) with: better understanding of current medical conditions; weighing benefits/burdens of medical treatment options; making medical treatment decisions. Subjective/Interval History Seen today to follow-up on comfort, goals. Notified by nursing that family has arrived and requesting update from palliative care. Patient stable overnight. No new labs or imaging. Nursing reporting patient more alert, speaking more. Dual visit with Gar[facility] Arita [facility] Patient seen in room with niece Alee, brother -in-law Jayce Bhatt at bedside. They have traveled here from [place] of state, [id number] Jayce is patient's designated healthcare surrogate per documents they have provided. Speech therapy is completing evaluation at time of our exam --ST recommends pured diet with honey thick liquids. Patient is alert, cooperative oriented to self, date of and hospital. Does not recognize her family. She is cooperative following commands and verbalizing a few words at a time. She tells her family she is hungry. ---- Met with family at length discussion included: * Palliative care role, team members, reason for consult * Additional medical/social/spiritual history * Patient cognitive and functional status in the months to weeks prior to this admission * Patient and/or family understanding of current medical conditions / treatment options, alternatively option of transitioning to comfort focus only, review of hospice role and philosophy * Overall condition, prognosis * Healthcare surrogate/advanced directives * CODE STATUS[] * Palliative care contact information provided Family informs they have noted a trajectory of decline over the past few months patient less conversant on the phone, more confused, and they indicate that her home has been increasingly unkempt and currently appears unlivable at their arrival in [facility]. He also reported increasing debility and less mobility in the past months. They indicate that she has been very clear with them in the past about not wanting any artificial measures such as tube feeding, resuscitation, ventilation etc. They indicate she would not want further invasive measures nor any artificial life-sustaining measures which will not restore her back to her prior cognitive and functional status, based on her previously expressed wishes. Upon review of hospice option they would like to proceed with hospice measures for comfort treatment only with care center placement in the short-term ; though I did review with them that if patient stable and well managed then hospice may assist with possible long-term placement in a nursing facility. Discussed with medical attending CJ, primary nurseST. . Advance Directives Living Will: Completed, but not made available Health Care Surrogate: Completed, but not made available Objective Vital Signs Date Time Temp Pulse Resp B/P (MAP) Pulse Ox O2 Delivery O2 Flow Rate FiO2 09/24/17 08:00 98.2 126 20 114/69 (84) 95 09/24/17 04:45 99.4 99 20 136/65 (88) 96 09/24/17 00:28 98.1 128 20 96/52 (67) 92 09/23/17 21:13 98.0 101 20 117/65 (82) 95 09/23/17 16:00 98.9 99 16 116/59 (78) 97 09/23/17 12:00 98.1 96 16 161/81 (107) 96 Intake & Output 09/24/17 09/24/17 07:00 19:00 Intake Total 861 ml Balance 861 ml IV Total 861 ml # Bowel Movements 1 Physical Exam CONSTITUTIONAL/GENERAL: Thin, cachectic frail female, no apparent distress TUBES/LINES/DRAINS:PIV RUE SKIN: No jaundice, rashes, or lesions. several small areas of ecchymosis BUE. No wounds seen anteriorly. Skin warm CARDIOVASCULAR: Regular rate and rhythm without murmurs. No JVD. Peripheral pulses symmetric. RESPIRATORY/CHEST: Symmetric, unlabored respirations. Room air. Clear to auscultation. Breath sounds equal bilaterally. GASTROINTESTINAL: Abdomen soft, non-tender, ? slightly distended. No hepato- splenomegaly, or palpable masses. Bowel sounds present. GENITOURINARY: Without palpable bladder distension. Adult brief in place. MUSCULOSKELETAL: Extremities without clubbing, cyanosis, or edema. No joint effusion noted. + swan neck deformity bilateral hands/fingers NEUROLOGICAL: Alert oriented to self, hospital, . Does not recognize family at bedside. No insight to hospitalization. Follows simple commands, pleasant, cooperative. PSYCHIATRIC: No obvious anxiety/depression- Diagnostic Tests Result Diagram: 09/20/17 0447 09/21/17 0655 Assessment and Plan Disease Oriented Problem List: (1) Dehydration (2) Altered mental status (3) Hypertension (4) GERD (gastroesophageal reflux disease) (5) Arthritis Symptom Scale: (1) Encephalopathy 0-10 Scale: Unable to quantify (2) Weakness 0-10 Scale: Unable to quantify (3) Malnutrition 0-10 Scale: Unable to quantify Pertinent Non-Medical Issues Psychosocial:Patient . Has lived alone apparently for the past 6 months when a former roommate and friend had to move out of the state due to cancer. A local neighbor Marco has been helping her by preparing dinner for her, and helping her shower twice weekly.neighbor informs that pt paid her own bills, kept appointments etc up until a week or so ago when she dramatically became more confused, not recognizing her, and refusing help. Patient also supported by [id number] Jayce who is named as healthcare surrogate Spiritual:not known Legal:Due to clinical condition patient is unable to participate in decision- making. Not clear if she will regain capacity. Patient family provided copy of living will which names [id number] Jayce Bhatt as healthcare surrogate, dated 09/13/2002 Ethical issues impacting care: No Ethical issues identified. Important Contacts Niece Alee Bhatt [id number] Jayce Bhatt Nephew -Shoaib Bhatt [phone] . Prognosis This patient was admitted for altered mental status of unknown etiology. She has some dehydration but otherwise diagnostics thus far negative for etiology. Question of some underlying dementia process. In her current frail status, malnourished if she continues she would expected to continue to decline and experience complications may be appropriate for hospice. Code Status: No Code Plan * Legal decision maker: Due to clinical condition/ dementia patient is unable to participate in decision-making. Patient family provided copy of living will which names [id number] Jayce Bhatt as healthcare surrogate. * Goals: They indicate she would not want further invasive measures nor any artificial life-sustaining measures which will not restore her back to her prior cognitive and functional status, based on her previously expressed wishes. Upon review of hospice option they would like to proceed with hospice measures for comfort treatment only with care center placement in the short-term ;with possible long-term placement in a nursing facility. Hospice order placed, pured diet with honey thick liquids ordered. * CODE STATUS: Full code by default * SYMPTOMS: --malnutrition: albumin 2.8-patient with poor appetite. Appears very frail, with significant muscle atrophy. Recently started on Megace. Dietitian consult pending nutritional supplements have been added. ST evaluated today patient tolerating pure with honey thick. Healthcare surrogate indicates patient would not want tube feeding or any artificial measures. They have elected hospice, patient may take by mouth for comfort/pleasure --weakness/debility-likely chronic? History of arthritis notably deformed hands secondary to. Patient's neighbor Assisted with showering due to this weakness and debility. -- AMS- ? underlying dementia , prior TIA, patient apparently oriented appropriate a few weeks ago per the neighbor. Neighbor further informed that patient with episodes of agitation refusing to allow her to assist with care, calling out and this prompted her to reach out to EMS. Family though details steady trajectory of cognitive and functional decline over the past few months each time they would speak to her on the phone she was more confused, less sharp and less verbal. Current acute decompensation is likely secondary to dehydration and dementia progression. Palliative care will continue to follow during hospital course as condition evolves, to assist patient/decision-maker with understanding of medical conditions, weighing benefits/burdens of treatment options, for clarification of goals of treatment. Additionally will assist with any symptoms of palliative concern Time Spent Total Floor Time (mins): 45 (Discussion with nurse, , medical attending, PE, meeting with family/HCS) Attestation To help prompt me to consider important information that might be impacting today's encounter and assessment, information from prior notes written by myself or my colleagues may have been "brought forward" into today's note. My signature on this note, however, is an attestation that I personally performed the exam, history, and/or decision-making noted today, and, unless otherwise indicated, the interactions with patient, family, and staff as well as the review of records all occurred today. I also attest that the listed assessment and stated plan reflect my best clinical judgment today based on the combination of historical information, prior notes, and today's exam/ interactions. When time spent is documented, it refers only to time spent today by the signer, or if indicated, combined time spent today by collaborating physician/nurse practitioner. Chanell Staples Sep 24, 2017 11:58
[2017-09-24 12:00] VITALS: BP 139/79; PULSE 133; RESP 20; TEMP 97.2; O2SAT 95
[2017-09-24 16:26] VITALS: BP 126/74; PULSE 122; RESP 20; TEMP 96.8; O2SAT 95
== END 2017-09-24 19:20 | disposition hospice, inpatient (51) | DRG 70 ==
LOC: NEPC 19:24 → NEDA 23:26 → NEPFCDU 09-20 02:30 → N05A 09-20 17:13
PROVIDERS: ADMIT Hospitalist; ATTEND Hospitalist
DX: G93.40 Encephalopathy, unspecified (principal); E43 Unspecified severe protein-calorie malnutrition; E86.0 Dehydration; F03.90 Unspecified dementia, unspecified severity, without behavioral disturbance, psychotic disturbance, mood disturbance, and anxiety; I10 Essential (primary) hypertension; Z86.73 Personal history of transient ischemic attack (TIA), and cerebral infarction without residual deficits; E78.5 Hyperlipidemia, unspecified; K21.9 Gastro-esophageal reflux disease without esophagitis; R29.6 Repeated falls; D50.9 Iron deficiency anemia, unspecified; E87.6 Hypokalemia; R74.8 Abnormal levels of other serum enzymes; M19.90 Unspecified osteoarthritis, unspecified site; Z51.5 Encounter for palliative care; Z66 Do not resuscitate; Z68.36 Body mass index [BMI] 36.0-36.9, adult; Z85.828 Personal history of other malignant neoplasm of skin; Z88.0 Allergy status to penicillin; Z95.5 Presence of coronary angioplasty implant and graft
CPT/HCPCS: 70450; 71010; 76937; 80048; 80053; 80307; 81001; 82607; 83735; 84134; 84443; 84484; 85025; 93005; 96360; J1644; J3480; J7030; P9612